=== PATIENT | male | born 1955 | race Caucasian/White ===

== ENCOUNTER 2024-05-14 13:04 | Emergency (ER) | payer MEDICARE, OTHER, SELFPAY ==
[2024-05-14 13:06] VITALS: BP 188/99
--- NOTE | 2024-05-14 14:01 | ED.GENMED ---
History of Present Illness
General
Chief Complaint: Back Pain
Time Seen by Provider: 05/14/24 13:50
History of Present Illness
History of Present Illness:
Patient presents to the emergency department with low back pain radiating down the right leg. Symptoms have been present for the past few days. Notes he has a history of degenerative disc disease and has had similar symptoms in the past. He
denies any bowel or bladder incontinence. Denies any saddle anesthesia though pain does radiate into his groin region. Denies any testicular swelling or penile pain. Denies any weakness in the lower extremities. Denies any fevers. Denies any
injuries.
Past History
Past History
ED Past Medical History: GERD, Renal failure (Chronic kidney disease stage III) and Other (Prostatitis)
ED Past Surgical History: Orthopedic (Right rotator cuff repair)
Social History
Tobacco: Smoker
Alcohol: Occasional
Personal:
Living: with family
Employment: Employed
Family History
Family History: Cancer
Phy Exam
Physical Exam
Physical Exam:
General: No acute distress
Head: NCAT
Neck, Normal in appearance, no swelling
Respiratory: No Respiratory distress
Abdomen: No distension
Ext: no edema,5/5 strength throughout hip flexors/KE/KF/DF/PF, SILT throughout
Neuro: MURILLO, AOx4, normal gait, able to toe walk
Back: no midline tenderness, SLR negative
Psych: Normal affect
Skin: Normal color
Course
Vital Signs
Initial and Last Documented VS:
Initial Vital Signs
Temp Pulse Resp BP Pulse Ox
97.5 F 74 18 188/99 98
05/14/24 13:06 05/14/24 13:06 05/14/24 13:06 05/14/24 13:06 05/14/24 13:06
Last Documented Vital Signs
Temp Pulse Resp BP Pulse Ox
97.5 F 74 18 188/99 98
05/14/24 13:06 05/14/24 13:06 05/14/24 13:06 05/14/24 13:06 05/14/24 13:06
ED Attending Note
ED Attending Note
ED Attending Note:
Lumbosacral radiculopathy without evidence of cord compression or cauda equina syndrome at this time. Will treat conservatively, refer to orthopedics. Strict return precautions given for worsening symptoms, saddle anesthesia, weakness in the legs,
bowel or bladder incontinence
-
Portions of this chart may have been created with voice recognition software.� Occasional wrong word or��sound alike� substitutions may have occurred due to the inherent limitations of voice recognition software.
Discharge Plan
Departure
Prescriptions:
No Action
omeprazole 20 MG capsule,delayed release(DR/EC)
20 mg PO DAILY
amlodipine 2.5 MG tablet
5 mg PO DAILY
Interventions
Interventions:
*Risk Screen - Suicide Last Done: 05/14/24 13:08
*General Assessment Last Done: 05/14/24 13:08
*Neglect/Abuse Screening Last Done: 05/14/24 13:08
ED-Musculoskeletal Assessment Last Done: 05/14/24 13:43
Discharge Date and Time
Print Language: KAZAKH
[2024-05-14 14:32] VITALS: BP 151/93
== END 2024-05-14 14:32 | disposition home or self-care (01) ==
LOC: EMR 13:04
PROVIDERS: EMERGENCY PHYSICIAN Emergency Medicine
DX: M54.17 Radiculopathy, lumbosacral region (principal); I10 Essential (primary) hypertension; K21.9 Gastro-esophageal reflux disease without esophagitis; N18.30 Chronic kidney disease, stage 3 unspecified; N41.9 Inflammatory disease of prostate, unspecified; F17.200 Nicotine dependence, unspecified, uncomplicated
CPT/HCPCS: 99282

== ENCOUNTER → 2024-07-08 16:41 | Outpatient (REF) | payer MEDICARE, OTHER, SELFPAY | LOC: PAVMRI 16:41 | PROVIDERS: ATTENDING PHYSICIAN Orthopaedic Surgery; FAMILY PHYSICIAN Family Medicine | DX: M54.50 Low back pain, unspecified (principal); M47.816 Spondylosis without myelopathy or radiculopathy, lumbar region | CPT/HCPCS: 72148 ==

== ENCOUNTER → 2024-09-02 10:03 | Outpatient (REF) | payer MEDICARE, OTHER, SELFPAY ==
[2024-09-02 11:58] LABS: ALT (SGPT) 18 U/L (0-50); AST (SGOT) 17 U/L (17-59); Albumin 4.3 g/dl (3.5-5.0); Alkaline Phosphatase 88 U/L (38-126); Blood Urea Nitrogen 33 mg/dl (9-20); Carbon Dioxide 23 mmol/L (22-30); Chloride 106 mmol/L (98-107); Glucose 104 mg/dl (70-99); HDL Cholesterol 49 mg/dl; LDL Cholesterol, Calculated 141 mg/dl; Potassium 4.7 mmol/L (3.5-5.1); Sodium 144 mmol/L (135-145); Total Bilirubin 0.7 mg/dl (0.2-1.3); Total Cholesterol 220 mg/dl (50-199); Total Protein 7.5 g/dl (6.3-8.2); Triglyceride 150 mg/dl (10-149); Very Low Density Lipoprotein 30 mg/dl (0-30); eGFR 37.71
[2024-09-03 12:06] LABS: Intact PTH 56.4 pg/ml (13.6-85.8)
[2024-09-04 05:34] LABS: PSA Total 2.4 ng/mL (0.0-4.0)
== END ==
LOC: REG 10:03
PROVIDERS: ATTENDING PHYSICIAN Specialist; FAMILY PHYSICIAN Family Medicine; OTHER PHYSICIAN Specialist
DX: R97.20 Elevated prostate specific antigen [PSA] (principal); N18.32 Chronic kidney disease, stage 3b; R31.0 Gross hematuria
CPT/HCPCS: 36415; 80053; 80061; 83970; 84153; 84154

== ENCOUNTER 2024-09-10 08:57 | Outpatient (RCR) | payer MEDICARE, OTHER, SELFPAY ==
[2024-09-10] MEDS: SODIUM BICARBONATE 1150 MEQ IV (09:32)
[2024-09-10 09:57] VITALS: BP 136/79
== END 2024-09-11 08:43 | disposition home or self-care (01) ==
LOC: OID 08:57
PROVIDERS: ATTENDING PHYSICIAN Specialist; FAMILY PHYSICIAN Family Medicine
DX: N18.32 Chronic kidney disease, stage 3b (principal); R31.29 Other microscopic hematuria; R80.9 Proteinuria, unspecified
CPT/HCPCS: 96365

== ENCOUNTER → 2024-09-10 09:24 | Outpatient (REF) | payer MEDICARE, OTHER, SELFPAY | LOC: RAD 09:24 | PROVIDERS: ATTENDING PHYSICIAN Specialist; FAMILY PHYSICIAN Family Medicine | DX: N39.0 Urinary tract infection, site not specified (principal); R31.0 Gross hematuria | CPT/HCPCS: 74178; Q9967 ==

== ENCOUNTER 2025-04-08 02:01 | Inpatient (IN) | payer MEDICARE, OTHER, SELFPAY ==
[2025-04-07 20:28] VITALS: BP 140/82
[2025-04-07 20:45] LABS: % Basophils 0.8 % (0-2); % Eosinophils 3.5 % (0-6); % Immature Granulocytes 0.6 % (0-0.5); % Lymphocytes 30.8 % (20.5-51.1); % Monocytes 10.1 % (1.7-9.3); % Neutrophils 54.2 % (42.2-75.2); Absolute Basophils 0.1 10^3/uL (0-0.2); Absolute Eosinophils 0.2 10^3/uL (0-0.7); Absolute Monocytes 0.7 10^3/uL (0.1-0.6); Absolute Neutrophils 3.6 10^3/uL (1.4-6.5); Hematocrit 36.2 % (39.0-52.0); Mean Corp Hgb Conc. 33.1 g/dL (33.0-37.0); Mean Corpuscular Hgb 27.7 pg (27.0-31.0); Mean Corpuscular Volume 83.6 fL (80.0-94.0); Nucleated Red Blood Cells % 0 % (-); Platelet Count 179 10^3/uL (130-400); Red Blood Cell Count 4.33 10^6/uL (4.70-6.10); Red Cell Dist. Width 14.3 % (11.5-14.5); White Blood Cell Count 6.6 10^3/uL (4.8-10.8)
[2025-04-07 20:59] LABS: ALT (SGPT) 16 U/L (0-50); AST (SGOT) 19 U/L (17-59); Albumin 4.3 g/dl (3.5-5.0); Alkaline Phosphatase 62 U/L (38-126); Blood Urea Nitrogen 45 mg/dl (9-20); Calcium 9.5 mg/dl (8.4-10.2); Carbon Dioxide 24 mmol/L (22-30); Chloride 111 mmol/L (98-107); Glucose 94 mg/dl (70-99); Potassium 5.2 mmol/L (3.5-5.1); Sodium 141 mmol/L (135-145); Total Bilirubin 0.8 mg/dl (0.2-1.3); Total Protein 7.3 g/dl (6.3-8.2); eGFR 35.46
[2025-04-07 21:12] VITALS: BP 124/83
[2025-04-07 21:14] VITALS: BMI 29.1
--- NOTE | 2025-04-07 21:25 | ED.GENMED ---
History of Present Illness
General
Chief Complaint: Rectal Bleeding
Source: patient
Exam Limitations: none
Time Seen by Provider: 04/07/25 21:16
History of Present Illness
History of Present Illness:
See MDM
Past History
Past History
ED Past Medical History: GERD, Renal failure (Chronic kidney disease stage III) and Other (Prostatitis)
ED Past Surgical History: Orthopedic (Right rotator cuff repair)
Social History
Tobacco: Smoker
Alcohol: Occasional
Personal:
Living: with family
Employment: Employed
Family History
Family History: Cancer
Phy Exam
Physical Exam
Physical Exam:
See MDM
Course
Orders/Labs/Results
Orders:
Orders
04/07/25 20:35
Complete Blood Count/With Diff Urgent
Comprehensive Metabolic Panel Urgent
04/07/25 20:37
Type+Screen Urgent
04/07/25 21:28
CT Abd/pel (oral only)-DH Only Urgent
Comment:
Reason For Exam: LLQ pain, rectal bleeding
Iohexol [Omnipaque] See Protocol PO NOW STA
04/07/25 23:03
ABO2 Routine
BBK Wristband Number:
Associate notified that ABO2 has been ordered: [id number]
Date: 04/07/25
Time: 20:46
Correctional Therapy Director ID: [id number]
04/08/25 00:37
Piperacillin/Tazo 3.375 Gram [Zosyn] 3.375 gram in 50 ml IV NOW
Abnormal Lab Results
04/07/25
20:35
RBC 4.33 L 10^6/uL
(4.70-6.10)
Hgb 12.0 L g/dL
(13.0-18.0)
Hct 36.2 L %
(39.0-52.0)
Absolute Monos (auto) 0.7 H 10^3/uL
(0.1-0.6)
Immature Gran % 0.6 H %
(0-0.5)
Monocytes % 10.1 H %
(1.7-9.3)
Potassium 5.2 H mmol/L
(3.5-5.1)
Chloride 111 H mmol/L
(98-107)
BUN 45 H mg/dl
(9-20)
Creatinine 2.0 H mg/dL
(0.7-1.3)
04/07/25 20:35
04/07/25 20:35
Vital Signs
Initial and Last Documented VS:
Initial Vital Signs
Temp Pulse Resp BP Pulse Ox
97.6 F 76 22 140/82 100
04/07/25 20:28 04/07/25 20:28 04/07/25 20:28 04/07/25 20:28 04/07/25 20:28
Last Documented Vital Signs
Temp Pulse Resp BP Pulse Ox
97.9 F 70 23 126/91 99
04/08/25 00:21 04/08/25 00:21 04/08/25 00:21 04/08/25 00:20 04/08/25 00:21
MDM/Problems Addressed
Differential Diagnosis Includes:
HPI and MDM Narrative:
69-year-old male presenting with rectal bleeding since yesterday. Given his prior history of hemorrhoids, he assumed this was hemorrhoid related. However, patient started to note bright red clot earlier today. He denies being on blood thinners.
He is now noticing left lower quadrant abdominal pain. He does have a history of diverticulosis
On exam, patient has very mild left lower quadrant tenderness. Rectal exam performed and there is bright red blood on the glove. No external bleeding hemorrhoid noted
Given the pain and bleeding, will obtain CT with concern for possible diverticulitis.
Physical exam
General: Well appearing and non-toxic
HEENT: protecting airway
Neck: appears supple
CV: No evidence of cyanosis
Resp: No accessory muscle use
Abd: Non-distended. Left lower quadrant tenderness without rebound
Rectal: Bright red blood on rectal exam
Extremities: No deformities
Neuro: alert
Psych: Normal affect
Skin: Intact
Problems Addressed including Acute and Chronic Conditions affecting care:
1. Abdominal pain and rectal bleeding
Acuity: acute
Prognosis: stable
Details: Potentially in the setting of diverticulosis versus of diverticulitis. Will obtain CT
Updates
CT confirms diverticulosis. Given the abdominal pain, patient started on Zosyn. Will admit. Patient has had several bouts of rectal bleeding since he has been here but vitals remained stable
Differential Diagnosis (but not limited to): Diverticulosis, diverticulitis, internal hemorrhoid
Testing considered: CT with IV contrast but patient has chronic kidney disease
Drug therapy (if applicable): OTC meds, please see d/c instruction regarding Rx drugs
Amount and/or Complexity of Data Reviewed
Clinical info obtained from: Patient
External data reviewed: N/A
Labs I independently reviewed (but not limited to): Hemoglobin 12, baseline chronic kidney disease
Radiology: The CT scan was personally and independently reviewed. In addition, official CT report reviewed.
Pulse Ox: not hypoxic
EKG independently reviewed: N/A
Maintenance Scheduler: N/A
Critical Care: N/A
Risk of Complication:
Social Determinants of health: Good social support
Discussed with other providers: Hospitalist
Escalation of Care includes Admit/Obs: Given the rectal bleeding abdominal pain, will admit
Occasional wrong word or 'sound a like' substitutions may have occurred due to the inherent limitations of voice recognition software. Read the chart carefully and recognize, using context, where substitutions have occurred.
*Critical Care Note
Total Time (30-74mins, 75-104mins- exclusive of procedures): Not Applicable
ED Attending Note
-
Portions of this chart may have been created with voice recognition software.� Occasional wrong word or��sound alike� substitutions may have occurred due to the inherent limitations of voice recognition software.
Discharge Plan
Departure
Patient Disposition: Admit
Date of Disposition: 04/08/25
Time of Disposition: 00:45
Admit to: Med/Surg
Presentation/result/management discussed w/ accepting MD/DO: Hospitalist
Discharge Problem:
Bright red rectal bleeding
Prescriptions:
No Action
omeprazole 20 MG capsule,delayed release(DR/EC)
20 mg PO DAILY
amlodipine 2.5 MG tablet
5 mg PO DAILY
cyclobenzaprine 10 mg tablet
5 mg PO TIDPRN PRN (Reason: muscle spasm) Qty: 9 0RF
Referrals:
Maximilian Carmona DO [Family Provider] -
Interventions
Interventions:
*Risk Screen - Suicide Last Done: 04/07/25 20:28
*General Assessment Last Done: 04/07/25 21:14
*Neglect/Abuse Screening Last Done: 04/07/25 20:28
*ED- Fall Risk Assessment Last Done: 04/07/25 21:14
*ED COVID-19 Vaccine History Last Done: 04/07/25 21:14
NI-Jwqsjm-Qeffxyjzpe Assessment Last Done: 04/07/25 21:14
ED- Cardiac Assessment Last Done: 04/07/25 21:14
ED- Pulmonary Assessment Last Done: 04/07/25 21:14
Discharge Date and Time
Print Language: NIUEAN
[2025-04-07] MEDS: OMNIPAQUE 50 ML PO (21:35)
[2025-04-07 22:00] VITALS: BP 128/86
[2025-04-07 23:00] VITALS: BP 137/96
[2025-04-08] VITALS (10 sets, daily range): BP systolic 107–150; BP diastolic 69–91; BMI 28.1
[2025-04-08] MEDS: ZOSYN 50 IV (01:04)
--- NOTE | 2025-04-08 01:26 | HPS.HSE ---
Family Physician
-
Family Physician: Maximilian Carmona
Chief Complaint
-
Rectal bleeding
History of Present Illness
This is a 69-year-old with past medical history of hypertension, GERD, CKD stage III, presenting to the emergency department with 1 evening of rectal bleeding.
Patient reports a prior history of bright red blood per rectum many years ago for which he was diagnosed with hemorrhoids. He has undergone EGD and colonoscopy many many years ago and was found to have a polyp. He also told me that made up any
constriction and he underwent a surgical procedure but is not clear. Perhaps hernia repair. Since then he has not had any issues with bright red blood per rectum.
He reported that last evening he started noticing clots in his bowel movement. He showed me pictures of stool mixed with dark blood. Later on he had more bright red blood mixed with clots. He had multiple episodes and decided come to the
emergency department.
Patient denies being on any thinners. He denies any NSAID use. He denies feeling lightheaded or dizzy. He denies any palpitations.
In the emergency department he was afebrile, blood pressure was 126/90 with a pulse of 70 satting 90% on room air.
He is moving his jaw which is similar to prior with normal platelet count. Electrolytes were normal. BUN/creatinine were similar to prior at 41 and 2.0 respectively.
He had a CT of the abdomen pelvis without IV or oral contrast without any acute findings, there was diverticulosis with no signs of diverticulitis.
Medical History
Past Medical History
Past Medical History: Reports Other
Additional Past Medical History:
CKD stage III
Prostatitis
GERD
Hypertension
Past Surgical History: Reports Other
Additional Past Surgical History:
Lap repair of inguinal hernia 2020
Right knee arthroscopy
TURP 2022
Surgical History
Surgical History
Social History
Tobacco: Non-smoker
Alcohol: None
Drug: None
Family History
Family History: Not pertinent
Allergies / Home Medications
Allergies reflects when Allergies were last updated in [facility].
Home Medications with original date entered in [facility]
Allergy/Medication List:
Allergies
Allergy/AdvReac Type Severity Reaction Status Date / Time
No Known Allergies Allergy Verified 04/07/25 20:31
Home Medications
amlodipine 2.5 mg tablet 5 mg PO DAILY 08/05/21
omeprazole 20 mg capsule,delayed release 20 mg PO DAILY 08/05/21
Review of Systems
-
Constitutional: Reports No Symptoms
EENT: Reports No Symptoms
Respiratory: Reports No Symptoms
Cardiac: Reports No Symptoms
Abdomen/GI: Reports Bloody Stools
: Reports No Symptoms
Musculoskeletal: Reports No Symptoms
Skin: Reports No Symptoms
Neurological: Reports No Symptoms
Endocrine: Reports No Symptoms
Hematologic/Lymphatic: Reports No Symptoms
Psych: Reports No Symptoms
Physical Exam
Vital Signs
Vital Signs
Temp Pulse Resp BP Pulse Ox
97.9 F 70 23 126/91 99
04/08/25 00:21 04/08/25 00:21 04/08/25 00:21 04/08/25 00:20 04/08/25 00:21
Physical Exam
General: Well Developed, Well Nourished and No Apparent Distress
HEENT: NormoCephalic, Moist mucous membranes and Atraumatic
Respiratory: Clear
Cardiac: S1/S2 and Regular Rhythm; No Murmur or Rub
GI: Soft, Non Tender, Non Distended and Normal Bowel Sounds; No Organomegaly
Rectal: Red and Deferred by Provider
Genito-urinary: Deferred by me
Musculoskeletal: No Clubbing, No Cyanosis and No Edema
Skin: No Rash
Neuro: Nonfocal/grossly intact
Hematologic/Lymphatic: No Lymphadenopathy
Psych: Calm
Laboratory Results
-
04/07/25 20:35
04/07/25 20:35
Laboratory Results
Total Bilirubin 0.8 mg/dl (0.2-1.3) 04/07/25 20:35
AST 19 U/L (17-59) 04/07/25 20:35
ALT 16 U/L (0-50) 04/07/25 20:35
Alkaline Phosphatase 62 U/L (38-126) 04/07/25 20:35
Data Reviewed
-
CT Scan: Report Reviewed by me
Lab Data: Labs Reviewed by me
Old Records: Reviewed
Impression/Plan
-
IMPRESSION:
69-year-old presenting to the emergency department with bright red blood per rectum and multiple bloody bowel movements with clots. Minimal abdominal discomfort and denies any nausea vomiting or diarrhea. He is afebrile with normal white cells.
Hemoglobin is stable. Hemodynamically stable. Electrolytes BUN/creatinine are stable and unremarkable. He has red blood per rectum in the ED but has not had any bowel movement that was bloody while in the ED.
PLAN:
GI bleed�lower GI bleed, suspect diverticular bleed given findings of diverticulosis and presence of clots from stool mixed with blood. He has no significant abdominal pain I do not think that there is an active diverticulitis or infectious
colitis. Cannot rule out ischemic colitis.
� Hemodynamically stable, admitted to telemetry for now
-Consented, type and screen
-Clear liquid diet for now
-Trend H&H every 8 hours
-Holding antihypertensive amlodipine
-Maintenance fluids with LR
-Continue Protonix IV daily
-GI consultation
DVT prophylaxis�SCDs
CODE STATUS�full code
[2025-04-08] MEDS: D5LR 1000 IV ×2 (03:22→16:13)
--- NOTE | 2025-04-08 03:46 | PTCARENOTE ---
Patient admitted to , telemetry order> NSR on the monitor-strip placed in chart. Afebrile, HR 63, RR 20, BP 150/80, pox 99% room air. No c/o pain. AAOx3. Steady on feet. Skin intact. IVFs started/infusing through #18 RAC/IV per MD order. H&H q8H
ordered. PMH and medications reviewed by this RN and patient. call mccarthy within reach.
[2025-04-08 06:20] LABS: Hematocrit 32.6 % (39.0-52.0); Hemoglobin 10.4 g/dL (13.0-18.0)
[2025-04-08 06:29] LABS: INR 1.15
[2025-04-08] MEDS: NSS (PRESERVATIVE FREE) 10 ML IV (07:27)
[2025-04-08] MEDS: PROTONIX IV 40 MG IV (07:27)
--- NOTE | 2025-04-08 09:09 | W.PN.HOSP.TC ---
Today's Communication/Plan
-
Trend CBC
Hold AC and antiplatelet
Avoid NSAID
N.p.o. at midnight for colonoscopy
Assessment / Plan
Assessment / Plan
#LGIB
#Diverticulosis
#Acute blood loss anemia
-Suspected diverticular bleed, bright red blood in toilet bowl with clots, CT showing diverticulosis
-Does have cardiac murmur, cannot rule out other etiology such as Heyde's syndrome or ulcerative disease
-Hemoglobin on arrival was near 12.0 (13 in November), has trended down to 10.4�9.9 today
-Not currently on any anticoagulants; home amlodipine held upon arrival due to soft BP
-GI following, recommending CLD with n.p.o. at midnight for colonoscopy tomorrow
-Trend CBC, transfuse for hemoglobin <7 or symptoms of anemia
-Avoid NSAIDs and antiplatelets/AC
-Continue home PPI daily
#SAMIA on CKD stage III
-Likely prerenal SAMIA due to bleeding; creatinine 2.0 on arrival with baseline near 1.4
-Unclear cause of CKD though may be related to hypertension; no systemic complication
-Started on light IV fluids upon arrival, suspect renal function will improve
-Continue to trend BMP and avoid nephrotoxic agents
#Primary hypertension
-Home regimen includes amlodipine
-Previous echocardiogram with signs of mild concentric LVH
-Blood pressure here soft, amlodipine held on arrival
-Plan to resume amlodipine when BP improves
#GERD
-Home medications include omeprazole daily
-No known history of BE or erosive disease
-Here with GI bleeding though suspect source is lower
Diet: CLD, n.p.o. after midnight (GI ordered bowel prep)
DVT prophylaxis: SCDs
CODE STATUS: Full code
Anticipated Discharge: 24 - 48 hours
Subjective/Interval History
-
Date of Service: April 08, 2025
Seen and examined at the bedside. No acute events reported overnight. AFVSS this morning
Hemoglobin downtrending to 9.9 on most recent labs. Creatinine up to 2.0 from baseline 1.4
Patient denies any recurrence of his bleeding. Denies any symptoms at time of my assessment and states he feels okay
Objective Data
-
Labs:
Laboratory Results
04/08/25 04/08/25
12:00
Hgb 10.4 L Pending
Hct 32.6 L Pending
PT 15.0 H
INR 1.15
Vital Signs:
Vital Signs
Temp Pulse Resp BP Pulse Ox
97.8 F 67 16 110/71 99
04/08/25 07:33 04/08/25 07:33 04/08/25 07:33 04/08/25 07:33 04/08/25 08:56
I&O
04/07/25 04/08/25 04/09/25
06:59 06:59 06:59
Intake Total 262.5 / 262.5
Balance 262.5 / 262.5
Review of Systems
-
History Source: Patient
All other systems: Reviewed and negative
Physical Exam
-
General: Well Developed, Well Nourished, No Apparent Distress and Comfortable
HEENT: Normocephalic, Atraumatic, Moist Mucous Membranes and Anicteric
Respiratory: Clear to Auscultation and Non Labored Respirations; Negative Accessory Resp Muscle Use
Cardiac: Regular Rhythm, S1/S2 and Murmur (Apical blowing murmur, /6); Negative Rub, JVD or Gallop
GI: Soft, Nontender, Nondistended and Normal Bowel Sounds
Musculoskeletal: No Clubbing, No Cyanosis and No Edema
Skin: Warm, Dry and Normal Turgor; Negative Rash or Jaundice
Neuro: AO x 3, Nonfocal/Grossly Intact and Central Nerve's Intact; Negative Tremors
Psych: Calm
Data Reviewed
-
Labs: Labs Reviewed by me, Discussed with Physician (Gastroenterology) and Discussed with Patient
--- NOTE | 2025-04-08 09:37 | CON.GI ---
Addendum entered and electronically signed by Yesi Duque Do, MD 04/08/25 16:05:
I saw and examined the patient.
The FLOOR COVERING CONTRACTOR's note was reviewed and I agree with the note.
Comment:
Barry is a 69yo M with h/o colonic polyps and diverticulosis who presents with hematochezia that is painless new onset.� Denies AC or chronic nsaid use.� Vitals stable.� Exam obese NTTP, NABS. WWP without edema.� Labs reviewed. H/H drop noted.�
His last Cscope was [address] Coreas also reviewed
Impression:
-��������� Painless hematochezia
o�� Differential includes diverticulitis, hemorrhoids or ulcer
-��������� Anemia
-��������� Obesity
-��������� H/o colonic polyps
Recommendations
-��������� Start golyte prep now
-��������� CLD NPO at OK for colonoscopy tomorrow
-��������� Serial H/H
-��������� Large bore IV
Will follow with you.
Original Note:
Consultation
-
Date/Time Consultation Requested: 04/08/25 0240
Date/Time Consultation Performed: 04/08/25 0940
Requesting Provider: NKECHI Mai
Performing Provider: NKECHI Alvares, Yesi Ladd MD
Reason for Consultation: rectal bleeding
Medical History
Chief Complaint / HPI
Chief Complaint: bright red blood per rectum
History of Present Illness:
Pt is a 69yo with hx GERD, HTN, CKD, colon polyps with removal of 16 mm TV polyp in 2019, prostatitis , prior TURP, knee/shoulder surgery with onset of rectal bleeding. CT with oral contrast only on admission with Limited evaluation without
intravenous contrast and without oral contrast opacification of entire large bowel.Descending colon and sigmoid diverticulosis.Small left renal cyst and additional subcentimeter low-attenuation left renal lesion most likely a cyst.Small urinary
bladder diverticulum. hbg 12 with drop to 10.4 after admission. hx EGD 2017 acute gastritis, normal duodenum, irreg Z line with neg bx, and last colonoscopy 2019 HP sigmoid polyp, tattoo in sigmoid, diverticulosis, melanosis.
In review with patient he admits to occasional rectal bleeding with hemorrhoids. He then started with larger volume of dark red blood with clots then red blood since Sunday. He admits to less blood since onset. He also had very mild LLQ
tenderness. He has chronic GERD stable on PPI daily. He otherwise denies dysphagia,nausea, vomiting, diarrhea, constipation, or black stools. Denies Anticoagulation or NSAID use.
Past Medical History
Past Medical History: GERD, HTN, Renal Failure (CKD) and Other (prostatitis, colon polyps)
Past Surgical History: Orthopedic (knee arthroscopy, rotator cuff repair ), Urological (TURP , circumcision ) and Other (hernia repair , )
Social History
Tobacco: Former Smoker
Alcohol: Occasional (1-2 drinks occasionally )
Drug: None
Personal:
Living: With Family
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
Family History
Family History: Other (no family hx colon Ca)
Allergies / Home Medications
Allergy/AdvReac Type Severity Reaction Status Date / Time
No Known Allergies Allergy Verified 04/07/25 20:31
�Medication �Instructions �Recorded
amlodipine 2.5 mg tablet 5 mg PO DAILY 08/05/21
omeprazole 20 mg capsule,delayed 20 mg PO DAILY 08/05/21
release
cyclobenzaprine 10 mg tablet 5 mg (1/2 x 10 mg) PO TIDPRN PRN 05/14/24
muscle spasm #9 tabs
Review of Systems
-
History Source: Patient
Constitutional: Reports No Symptoms
EENT: Reports No Symptoms
Respiratory: Reports No Symptoms
Cardiac: Reports No Symptoms
Abdomen/GI: Reports Abdominal Pain (mild LLQ ) and Bloody Stools
: Reports No Symptoms
Musculoskeletal: Reports No Symptoms
Skin: Reports No Symptoms
Neurological: Reports No Symptoms
Endocrine: Reports No Symptoms
Hematologic/Lymphatic: Reports Bleeding
Vital Signs
Temp Pulse Resp BP Pulse Ox
97.8 F 67 16 110/71 99
04/08/25 07:33 04/08/25 07:33 04/08/25 07:33 04/08/25 07:33 04/08/25 08:56
Physical Exam
Exam
General: Well Developed, Well Nourished and No Apparent Distress
HEENT: Normocephalic
Respiratory: Clear
Cardiac: Regular Rhythm
GI: Soft, Non Distended and Tender (minimal LLQ tenderness )
Rectal: Other (red blood on ER rectal )
Musculoskeletal: No Clubbing and No Cyanosis
Skin: Warm and Dry
Neuro: Awake, Alert and AO x 3
Psych: Calm
Results
WBC 6.6 10^3/uL (4.8-10.8) 04/07/25 20:35
Hgb 10.4 g/dL (13.0-18.0) L 04/08/25 05:25
Hct 32.6 % (39.0-52.0) L 04/08/25 05:25
MCV 83.6 fL (80.0-94.0) 04/07/25 20:35
Plt Count 179 10^3/uL (130-400) 04/07/25 20:35
Absolute Neuts (auto) 3.6 10^3/uL (1.4-6.5) 04/07/25 20:35
PT 15.0 Sec (11.4-14.6) H 04/08/25 05:25
INR 1.15 04/08/25 05:25
Sodium 141 mmol/L (135-145) 04/07/25 20:35
Potassium 5.2 mmol/L (3.5-5.1) H 04/07/25 20:35
Chloride 111 mmol/L (98-107) H 04/07/25 20:35
Carbon Dioxide 24 mmol/L (22-30) 04/07/25 20:35
BUN 45 mg/dl (9-20) H 04/07/25 20:35
Creatinine 2.0 mg/dL (0.7-1.3) H 04/07/25 20:35
Calcium 9.5 mg/dl (8.4-10.2) 04/07/25 20:35
Total Bilirubin 0.8 mg/dl (0.2-1.3) 04/07/25 20:35
AST 19 U/L (17-59) 04/07/25 20:35
ALT 16 U/L (0-50) 04/07/25 20:35
Alkaline Phosphatase 62 U/L (38-126) 04/07/25 20:35
Diagnostic Image Results:
04/07/25 CT with oral contrast only on admission with Limited evaluation without intravenous contrast and without oral contrast opacification of entire large bowel.
Descending colon and sigmoid diverticulosis.Small left renal cyst and additional subcentimeter low-attenuation left renal lesion most likely a cyst.Small urinary bladder diverticulum.
Prior GI Procedures:
08/2020- colonoscopy [facility] good prep to IC valve - One 3 mm polyp in the sigmoid colon, removed with a
cold biopsy forceps. Resected and retrieved.
- A tattoo was seen in the sigmoid colon. The tattoo
site appeared normal.
- Diverticulosis in the sigmoid colon, in the
descending colon and in the transverse colon.
- Melanosis in the colon.
- The examination was otherwise normal.
bx HP polyps
04/2017 EGD [facility]- - Z-line irregular, 38 cm from the incisors. Biopsied.
- Acute gastritis. Biopsied.
- Normal third portion of the duodenum. Biopsied.
bx chronic esophagitis, neg metaplasia neg dysphagia, neg h pylori
Assessment / Plan
-
Pt is a 69yo with hx GERD, HTN, CKD, colon polyps with removal of 16 mm TV polyp in 2018, prostatitis , prior TURP, knee/shoulder surgery with onset of rectal bleeding. CT with oral contrast only on admission with Limited evaluation without
intravenous contrast and without oral contrast opacification of entire large bowel.Descending colon and sigmoid diverticulosis.Small left renal cyst and additional subcentimeter low-attenuation left renal lesion most likely a cyst.Small urinary
bladder diverticulum. hbg 12 with drop to 10.4 after admission. hx EGD 2016 acute gastritis, normal duodenum, irreg Z line with neg bx, and last colonoscopy 2019 HP sigmoid polyp, tattoo in sigmoid, diverticulosis, melanosis. Denies
Anticoagulation or NSAID use.
-rectal bleeding
-hx colon polyp with removal of 16 mm TV polyp in 2018
-GERD stable on PPI
-hyperkalemia
-diverticulosis
other med problems:
-HTN
-CKD
-renal cyst
-prostatitis
-prior TURP
-knee/shoulder surgery
PLAN:
etiology of rectal bleeding with concern for diverticular bleeding vs colitis with mild abdominal pain though not noted on CT vs other
pt reports less bleeding over time
cont to monitor for recurrent bleeding
trend hbg
CT with oral contrast as noted, CTA held with CKD
if continued bleeding consider colonoscopy -- if colonoscopy held and bleeding stops t/c OP follow up for repeat colonoscopy as was due 08/2025 for follow up with hx polyps
cont clear diet
-
-
Thank you for consultation and allowing me to participate in the patient's care. Please call the certified pediatric nurse practitioner GI physician during the after hours with any questions or concerns.
--- NOTE | 2025-04-08 09:52 | CM ---
CM following re: discharge planning.
Reviewed pt's chart, met with pt.
Pt is a 69 year old male, admitted with primary dx of Rectal bleeding. PMH includes: hypertension, GERD, CKD stage III.
Pt reports he lives with spouse 2SH, no steps to enter, has 2 supportive children. 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 No DME, VN or SNF history. Pt expressed his desire to return back home at discharge.
PCP: Maximilian Carmona
Pharmacy: [facility]
D/C plan: home with anticipated no needs. Spouse to transport at discharge.
CM will follow with discharge plan updates as hospitalization progresses
[2025-04-08] MEDS: DULCOLAX 10 MG PO (16:43)
[2025-04-08] MEDS: NULYTELY SOLUTION 4 LITERS PO (16:44)
[2025-04-08 16:46] LABS: Hematocrit 30.3 % (39.0-52.0); Hemoglobin 9.9 g/dL (13.0-18.0)
--- NOTE | 2025-04-08 17:43 | PTCARENOTE ---
Pt continues w/ rectal bleeding. Do at bedside to discuss POC. Plan to start Golyte preop today, continue w/ clears, NPO at midnight, colonoscopy tomorrow.
--- NOTE | 2025-04-08 17:45 | DOWNTIME ---
There was a [employer] Client Pharmaceutical Representative Downtime on 04/08/2025 from 1230 to 04/08/2025 at 1550. Downtime documentation of patient's care, including medication administrations, has been reconciled in the electronic record per guidelines. Refer to the
patient's paper chart under the miscellaneous tab to see printed paper medication records and downtime forms.
--- NOTE | 2025-04-08 20:00 | PTCARENOTE ---
Resumed care of pt AAOx3 sitting up in bed. Pt currently drinking Golyte bowel prep for colonoscopy in am. Pt ambulating to bathroom independently when needed. Pt reports continued bright red rectal bleeding. Pt denies any complaints of pain or
discomfort at this time. Vital signs stable. IVF infusing as ordered. Call mccarthy in reach. Will continue to monitor.
[2025-04-09] VITALS (8 sets, daily range): BP systolic 104–121; BP diastolic 62–75
[2025-04-09] MEDS: D5LR 1000 IV (06:06)
[2025-04-09 07:30] LABS: Hematocrit 28.5 % (39.0-52.0); Hemoglobin 9.4 g/dL (13.0-18.0); Mean Corpuscular Hgb 27.9 pg (27.0-31.0); Mean Corpuscular Volume 84.6 fL (80.0-94.0); Mean Platelet Volume 10.7 fL (7.4-10.4); Platelet Count 154 10^3/uL (130-400); Red Blood Cell Count 3.37 10^6/uL (4.70-6.10); Red Cell Dist. Width 14.1 % (11.5-14.5); White Blood Cell Count 4.9 10^3/uL (4.8-10.8)
--- NOTE | 2025-04-09 08:04 | W.PN.HOSP.TC ---
Today's Communication/Plan
-
Low residue diet
Trend CBC and monitor for bleeding
Plan OP follow-up with GI for polypectomy
Likely DC on 04/10
Assessment / Plan
Assessment / Plan
#Diverticular bleed
#Acute blood loss anemia
#Colon polyp
-Suspected diverticular bleed, bright red blood in toilet bowl with clots, CT showing diverticulosis
-Does have cardiac murmur, cannot rule out other etiology such as Heyde's syndrome or ulcerative disease
-Hemoglobin on arrival was near 12.0 (13 in November), has trended down to 10.4�9.9 today
-Not currently on any anticoagulants; home amlodipine held upon arrival due to soft BP
-GI following, colonoscopy with polyps and nonbleeding diverticuli (signs of recent bleed)
-Trend CBC, transfuse for hemoglobin <7 or symptoms of anemia
-Avoid NSAIDs and antiplatelets/AC
-Continue home PPI daily
-Plan for OP scope for polypectomy
#SAMIA on CKD stage III
-Likely prerenal SAMIA due to bleeding; creatinine 2.0 on arrival with baseline near 1.4
-Unclear cause of CKD though may be related to hypertension; no systemic complication
-Started on light IV fluids upon arrival, suspect renal function will improve
-Continue to trend BMP and avoid nephrotoxic agents
#Primary hypertension
-Home regimen includes amlodipine
-Previous echocardiogram with signs of mild concentric LVH
-Blood pressure here soft, amlodipine held on arrival
-Plan to resume amlodipine when BP improves
#GERD
-Home medications include omeprazole daily
-No known history of BE or erosive disease
-Here with GI bleeding though suspect source is lower
Diet: LRD
DVT prophylaxis: SCDs
CODE STATUS: Full code
Anticipated Discharge: Within 24 hours
Subjective/Interval History
-
Date of Service: April 09, 2025
Seen and examined at bedside. No acute events reported overnight. AFVSS this morning
Hemoglobin stable. Denies any further bleeding. Underwent colonoscopy that showed diverticulosis without active bleeding as well as colon polyps
Denies any new complaints as of this morning
Objective Data
-
Labs:
Laboratory Results
04/09/25
06:33
WBC 4.9
Hgb 9.4 L
Hct 28.5 L
Plt Count 154
Sodium Pending
Potassium Pending
Chloride Pending
Carbon Dioxide Pending
BUN Pending
Creatinine Pending
Glucose Pending
Calcium Pending
Vital Signs:
Vital Signs
Temp Pulse Resp BP Pulse Ox
97.4 F 79 16 111/74 95
04/09/25 03:00 04/09/25 03:00 04/09/25 03:00 04/09/25 03:00 04/09/25 03:00
I&O
04/08/25 04/09/25 04/10/25
06:59 06:59 06:59
Intake Total 262.5 / 262.5 2820 / 2820
Balance 262.5 / 262.5 2820 / 2820
Review of Systems
-
History Source: Patient
All other systems: Reviewed and negative
Physical Exam
-
General: Well Developed, Well Nourished, No Apparent Distress and Comfortable
HEENT: Normocephalic, Atraumatic, Moist Mucous Membranes and Anicteric
Respiratory: Clear to Auscultation and Non Labored Respirations; Negative Accessory Resp Muscle Use
Cardiac: Regular Rhythm, S1/S2 and Murmur; Negative Rub or Gallop
GI: Soft, Nontender, Nondistended and Normal Bowel Sounds
Musculoskeletal: No Clubbing, No Cyanosis and No Edema
Skin: Warm and Dry; Negative Rash or Jaundice
Neuro: AO x 3 and Nonfocal/Grossly Intact
Psych: Calm
Data Reviewed
-
Labs: Labs Reviewed by me, Discussed with Physician (GI attending) and Discussed with Patient
[2025-04-09 08:05] LABS: Blood Urea Nitrogen 23 mg/dl (9-20); Calcium 8.9 mg/dl (8.4-10.2); Carbon Dioxide 25 mmol/L (22-30); Chloride 112 mmol/L (98-107); Estimated Creatinine Clearance 44 ml/min; Glucose 108 mg/dl (70-99); Sodium 139 mmol/L (135-145)
[2025-04-09] MEDS: PROTONIX IV 40 MG IV (08:20)
[2025-04-09] MEDS: NSS (PRESERVATIVE FREE) 10 ML IV (08:20)
--- NOTE | 2025-04-09 10:30 | PTCARENOTE ---
Received patient from PACU, s/p colonoscopy. Patient AAOx3, no c/o pain, ambulated from stretcher to bed with a steady gait. Patient is ordering breakfast now-Low residue diet. Patient tolerating PO liquids.
--- NOTE | 2025-04-09 13:15 | PTCARENOTE ---
Patient tolerated low residue diet. Patient has no c/o nausea or badominal discomfort.
--- NOTE | 2025-04-09 14:16 | CM ---
CM following re: discharge planning.
Reviewed pt's chart, met with pt.
Pt lives with spouse 2SH, no steps to enter, has 2 supportive children and pt described himself as independent in all areas [employer]. No DME, VN or SNF history.
D/C plan: home with anticipated no needs. Spouse to transport at discharge.
CM will follow with discharge plan updates as hospitalization progress
[2025-04-10 03:06] VITALS: BP 112/66
[2025-04-10 07:00] VITALS: BP 124/75
--- NOTE | 2025-04-10 09:18 | W.PN.HOSP.TC ---
Today's Communication/Plan
-
Discharge
CBC in 5 days
OP follow-up with GI for colonoscopy and polypectomy
Assessment / Plan
Assessment / Plan
#Diverticular bleed
#Acute blood loss anemia
#Colon polyps
-Suspected diverticular bleed, bright red blood in toilet bowl with clots, CT showing diverticulosis
-Does have cardiac murmur, cannot rule out other etiology such as Heyde's syndrome or ulcerative disease
-Hemoglobin on arrival was near 12.0 (13 in November), has trended down to 10.4�9.9 today
-Not currently on any anticoagulants; home amlodipine held upon arrival due to soft BP
-GI following, colonoscopy with polyps and nonbleeding diverticuli (signs of recent bleed)
-Trend CBC, transfuse for hemoglobin <7 or symptoms of anemia
-Avoid NSAIDs and antiplatelets/AC
-Continue home PPI daily
-Plan for OP scope for polypectomy
#SAMIA on CKD stage III
-Likely prerenal SAMIA due to bleeding; creatinine 2.0 on arrival with baseline near 1.4
-Unclear cause of CKD though may be related to hypertension; no systemic complication
-Started on light IV fluids upon arrival, suspect renal function will improve
-Continue to trend BMP and avoid nephrotoxic agents
#Primary hypertension
-Home regimen includes amlodipine
-Previous echocardiogram with signs of mild concentric LVH
-Blood pressure here soft, amlodipine held on arrival
-Plan to resume amlodipine when BP improves
#GERD
-Home medications include omeprazole daily
-No known history of BE or erosive disease
-Here with GI bleeding though suspect source is lower
Diet: LRD
DVT prophylaxis: SCDs
CODE STATUS: Full code
Anticipated Discharge: Today
Subjective/Interval History
-
Date of Service: April 10, 2025
Seen and examined at the bedside. No acute events reported overnight. AFVSS this morning
Hemoglobin with mild downtrend compared to yesterday. Denies any recurrence of bleeding. Denies any other symptoms
States he feels well and is ready for discharge home
Objective Data
-
Labs:
Laboratory Results
04/10/25
09:15
WBC Pending
Hgb Pending
Hct Pending
Plt Count Pending
Vital Signs:
Vital Signs
Temp Pulse Resp BP Pulse Ox
98.1 F 66 16 124/75 96
04/10/25 07:00 04/10/25 07:00 04/10/25 07:00 04/10/25 07:00 04/10/25 07:00
I&O
04/09/25 04/10/25 04/11/25
06:59 06:59 06:59
Intake Total 2820 / 2820 900 / 900
Balance 2820 / 2820 900 / 900
Review of Systems
-
History Source: Patient
All other systems: Reviewed and negative
Physical Exam
-
General: Well Developed, Well Nourished, No Apparent Distress and Comfortable
HEENT: Normocephalic, Atraumatic, Moist Mucous Membranes and Anicteric
Respiratory: Clear to Auscultation and Non Labored Respirations; Negative Accessory Resp Muscle Use
Cardiac: Regular Rhythm, S1/S2 and Murmur; Negative Rub or Gallop
GI: Soft, Nontender, Nondistended and Normal Bowel Sounds
Musculoskeletal: No Clubbing, No Cyanosis and No Edema
Skin: Warm and Dry; Negative Rash or Jaundice
Neuro: AO x 3, Nonfocal/Grossly Intact and Central Nerve's Intact
Psych: Calm
Data Reviewed
-
Labs: Labs Reviewed by me and Discussed with Patient
[2025-04-10] MEDS: PROTONIX IV 40 MG IV (09:42)
[2025-04-10] MEDS: NSS (PRESERVATIVE FREE) 10 ML IV (09:43)
[2025-04-10 09:55] LABS: Hematocrit 26.5 % (39.0-52.0); Hemoglobin 8.8 g/dL (13.0-18.0); Mean Corp Hgb Conc. 33.2 g/dL (33.0-37.0); Mean Corpuscular Hgb 27.8 pg (27.0-31.0); Mean Corpuscular Volume 83.6 fL (80.0-94.0); Mean Platelet Volume 10.1 fL (7.4-10.4); Platelet Count 125 10^3/uL (130-400); Red Blood Cell Count 3.17 10^6/uL (4.70-6.10); White Blood Cell Count 4.3 10^3/uL (4.8-10.8)
--- NOTE | 2025-04-10 10:16 | W.PN.GI.CBS2 ---
Today's Communication / Plan
-
OK for DC from GI
OP colo in 6 months for polypectomy with
Assessment / Plan
-
Pt is a 69yo with hx GERD, HTN, CKD, colon polyps with removal of 16 mm TV polyp in 2019, prostatitis , prior TURP, knee/shoulder surgery with onset of rectal bleeding. CT with oral contrast only on admission with Limited evaluation without
intravenous contrast and without oral contrast opacification of entire large bowel.Descending colon and sigmoid diverticulosis.Small left renal cyst and additional subcentimeter low-attenuation left renal lesion most likely a cyst.Small urinary
bladder diverticulum. hbg 12 with drop to 10.4 after admission. hx EGD 2016 acute gastritis, normal duodenum, irreg Z line with neg bx, and last colonoscopy 2019 HP sigmoid polyp, tattoo in sigmoid, diverticulosis, melanosis. Denies
Anticoagulation or NSAID use.
-rectal bleeding
-hx colon polyp with removal of 16 mm TV polyp in 2018
-GERD stable on PPI
-hyperkalemia
-diverticulosis
other med problems:
-HTN
-CKD
-renal cyst
-prostatitis
-prior TURP
-knee/shoulder surgery
PLAN:
Status post colonoscopy 04/[address] Ladd and was noted to have old blood and most likely source of bleeding was thought to be related to diverticular bleed. No further bleeding and tolerating diet okay for DC today with repeat outpatient
colonoscopy with Dr. Ladd in 6 months for polypectomy.
Will sign off and will be available as needed
Subjective
Subjective
Date of Service: April 10, 2025
Patient feels well no further bleeding and hemoglobin remained stable. He was able to tolerate diet last night
Objective
Data Reviewed
Laboratory Data:
Laboratory Results
04/10/25 09:42
04/09/25 06:33
Laboratory Results
PT 15.0 Sec (11.4-14.6) H 04/08/25 05:25
INR 1.15 04/08/25 05:25
Total Bilirubin 0.8 mg/dl (0.2-1.3) 04/07/25 20:35
AST 19 U/L (17-59) 04/07/25 20:35
ALT 16 U/L (0-50) 04/07/25 20:35
Alkaline Phosphatase 62 U/L (38-126) 04/07/25 20:35
Vital Signs and I&O:
Vital Signs
Temp Pulse Resp BP Pulse Ox
98.1 F 66 16 124/75 96
04/10/25 07:00 04/10/25 07:00 04/10/25 07:00 04/10/25 07:00 04/10/25 07:00
I&O
04/09/25 04/10/25 04/11/25
06:59 06:59 06:59
Intake Total 2820 / 2820 900 / 900
Balance 2820 / 2820 900 / 900
Physical Exam
Physical Exam
Cardiology: Normal Sinus Rhythm
Pulmonary: Clear
GI: Soft, Non Distended, Non Tender and Normal Bowel Sounds
[2025-04-10 11:00] VITALS: BP 134/76
--- NOTE | 2025-04-10 11:31 | CM ---
CM following re: discharge planning.
Reviewed pt's chart, met with pt.
Discharge order noted. Pt is aware, expressed his agreement with discharge and pt stated he will drive home, his car is parked on the parking lot.
IMM reviewed, placed on chart, pt has a copy.
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
No after care VN services indicated
D/C plan: home no needs. Pt will drive home or son to transport.
--- NOTE | 2025-04-10 13:52 | W.DCSUMMARY ---
Discharge Summary
Discharge Data
Date of Admission: 04/08/25
Date of Discharge: 04/10/25
Total time spent discharging patient (in min): 31
-
Pending Results: No
Hospital Course
Discharging Physician :�Bart Beltran DO
Disposition :���� Home
Principal Discharge diagnosis :�
Diverticular bleed
Acute blood loss anemia
Colon polyps
Cardiac murmur (presumed )
Chronic Discharge diagnosis :�
CKD stage III
Hypertension with LVH
GERD
Hospital Course :�
69-year-old male that presented to the hospital with rectal bleeding, noticing toilet bowl feeling with red blood and presence of blood clots. Upon arrival to the ED found to have downtrending hemoglobin with initial value 12 (down from 13.5 on
last labs in system) that decreased down to 8.8 by day of discharge. CT A/P on arrival showed descending colon and sigmoid diverticulosis but no other findings such as mass or other anatomical abnormality. Was placed on the PPI therapy and given
clear liquids pending GI evaluation. Gastroenterology provided bowel prep and performed colonoscopy on 04/09/2025. Colonoscopy ultimately demonstrated nonbleeding diverticuli with evidence of recent bleeding (heme present), and also demonstrated
colon polyps. Due to ongoing bleeding, gastroenterology decided to defer polypectomy to the outpatient setting as further sources of bleeding could complicate his clinical picture. He was monitored overnight after colonoscopy and had no recurrence
of rectal bleeding. Tolerated low residue diet prior to discharge. With stable on 04/10/2025 for discharge with outpatient follow-up. Provided prescription for CBC 5 days after his discharge to reassess blood counts. Will need to follow-up with
gastroenterology in office for colonoscopy in 6 months with plan to perform polypectomy at that time. Of note, he does have a systolic ejection murmur best heard at the [facility] suspicious for aortic stenosis. Should have an echocardiogram performed
as outpatient to assess hemodynamics.
Consultants :
Gastroenterology: Yesi Ladd DO
Important imaging findings :�
CT A/P without contrast (04/07/2025)
IMPRESSION:Limited evaluation without intravenous contrast and without oral contrast opacification of entire large bowel. Descending colon and sigmoid diverticulosis. Small left renal cyst and additional subcentimeter low-attenuation left renal
lesion most likely a cyst. Small urinary bladder diverticulum.
Procedure findings :�
Colonoscopy (04/09/2025)
-Non-bleeding internal hemorrhoids were found during retroflexion. The hemorrhoids were medium-sized.
-Multiple diverticula were found in the sigmoid colon and descending colon.
-The exam was otherwise without abnormality.
-A 5 mm polyp was found in the sigmoid colon. The polyp was sessile.
-A 4 mm polyp was found in the cecum. The polyp was sessile.
-A 4 mm polyp was found in the descending colon. The polyp was sessile.
-A tattoo was seen in the sigmoid colon. The tattoo site appeared normal.
-Old blood seen suspected resolving diverticular bleeding.
Follow-up :
Follow-up with family doctor within 1 to 2 weeks of discharge from the hospital
Follow-up in office with gastroenterology, plan for colonoscopy and polypectomy in 6 months
Repeat CBC 5 to 7 days after discharge
Discharge Plan
-
Patient Disposition: Home (Routine Discharge)
Discharge Diagnosis/Procedures: Diverticular bleed
Acute blood loss anemia
Lower GI bleeding
Colon polyps
Status post colonoscopy
Condition: Good
Diet: Low Residue
Activity: As tolerated
Driving Restrictions: As prior to admission
Bathing Restrictions: None
Blood Work: CBC in 5 days to recheck blood counts
Others Tests: Colonoscopy with polypectomy to be scheduled by pick up driver
Transthoracic Echocardiogram to assess cardiac murmur (likely Aortic stenosis)
Activity Restrictions/Additional Instructions:
Follow-up with your family doctor within 1 to 2 weeks of discharge from the hospital
Contact pick up driver office to schedule appointment for colonoscopy and colon polyp removal
Instructions: Low-fiber diet
Referrals:
Yesi Ladd MD [Active, Gastroenterology] - in one to two weeks
Maximilian Carmona DO [Family Provider, Family Practice]
Additional Discharge Medication Instructions: Stop taking amlodipine and to use see your family doctor in the office
Prescriptions:
Continued
omeprazole 20 MG capsule,delayed release(DR/EC)
20 mg PO DAILY
cyclobenzaprine 10 mg tablet
5 mg PO TIDPRN PRN (Reason: muscle spasm) Qty: 9 0RF
Held
amlodipine 2.5 MG tablet
5 mg PO DAILY
Hold Instructions: Until you see family doctor in office
Discharge Orders:
Discharge Patient (As Directed); Ordered 04/10/25
Ordered By: Bart Beltran
Discharge Date and Time
Print Language: ROMANIAN
== END 2025-04-10 13:57 | disposition home or self-care (01) | DRG 378 ==
LOC: 2 NORTH 02:01
PROVIDERS: Emergency Medicine; Nurse Practitioner Adult Health; Nurse Practitioner Family; ADMITTING PHYSICIAN Internal Medicine; ATTENDING PHYSICIAN Internal Medicine; CONSULT PHYSICIAN Internal Medicine Gastroenterology; EMERGENCY PHYSICIAN Student in an Organized Health Care Education/Training Program; FAMILY PHYSICIAN Family Medicine
PROC: 0DJD8ZZ Inspection of Lower Intestinal Tract, Via Natural or Artificial Opening Endoscopic (ICD-10-PCS; 2025-04-09)
DX: K57.31 Diverticulosis of large intestine without perforation or abscess with bleeding (principal); D62 Acute posthemorrhagic anemia; D12.0 Benign neoplasm of cecum; K64.8 Other hemorrhoids; D12.5 Benign neoplasm of sigmoid colon; D12.4 Benign neoplasm of descending colon; I12.9 Hypertensive chronic kidney disease with stage 1 through stage 4 chronic kidney disease, or unspecified chronic kidney disease; N18.30 Chronic kidney disease, stage 3 unspecified; K21.00 Gastro-esophageal reflux disease with esophagitis, without bleeding; N28.1 Cyst of kidney, acquired; N32.3 Diverticulum of bladder; E66.9 Obesity, unspecified; Z68.28 Body mass index [BMI] 28.0-28.9, adult; E87.5 Hyperkalemia; F17.200 Nicotine dependence, unspecified, uncomplicated; Z90.79 Acquired absence of other genital organ(s)
CPT/HCPCS: 74176; 80048; 80053; 85014; 85018; 85025; 85027; 85610; 86850; 86900; 86901; 96365; 99284

== ENCOUNTER 2025-04-14 04:47 | Inpatient (IN) | payer MEDICARE, OTHER, SELFPAY ==
[2025-04-13 22:13] VITALS: BP 121/73
[2025-04-13 23:12] VITALS: BP 138/62
[2025-04-13 23:46] LABS: % Basophils 0.6 % (0-2); % Eosinophils 1.8 % (0-6); % Immature Granulocytes 0.5 % (0-0.5); % Lymphocytes 11.3 % (20.5-51.1); % Monocytes 7.9 % (1.7-9.3); % Neutrophils 77.9 % (42.2-75.2); Absolute Eosinophils 0.1 10^3/uL (0-0.7); Absolute Lymphocytes 0.7 10^3/uL (1.2-3.4); Absolute Monocytes 0.5 10^3/uL (0.1-0.6); Absolute Neutrophils 5.1 10^3/uL (1.4-6.5); Hematocrit 23.7 % (39.0-52.0); Hemoglobin 7.7 g/dL (13.0-18.0); Mean Corp Hgb Conc. 32.5 g/dL (33.0-37.0); Mean Corpuscular Hgb 27.9 pg (27.0-31.0); Mean Corpuscular Volume 85.9 fL (80.0-94.0); Mean Platelet Volume 10.4 fL (7.4-10.4); Nucleated Red Blood Cells % 0 % (-); Platelet Count 149 10^3/uL (130-400); Red Blood Cell Count 2.76 10^6/uL (4.70-6.10); Red Cell Dist. Width 14.7 % (11.5-14.5); White Blood Cell Count 6.6 10^3/uL (4.8-10.8)
[2025-04-14] VITALS (33 sets, daily range): BP systolic 16–160; BP diastolic 53–139
[2025-04-14 00:07] LABS: Lactic Acid 2.1 mmol/L (0.7-2.0)
[2025-04-14 00:09] LABS: ALT (SGPT) 17 U/L (0-50); AST (SGOT) 19 U/L (17-59); Albumin 3.9 g/dl (3.5-5.0); Alkaline Phosphatase 52 U/L (38-126); Blood Urea Nitrogen 28 mg/dl (9-20); Calcium 9.1 mg/dl (8.4-10.2); Carbon Dioxide 25 mmol/L (22-30); Chloride 110 mmol/L (98-107); Glucose 132 mg/dl (70-99); Lipase 98 U/L (23-300); Potassium 4.2 mmol/L (3.5-5.1); Sodium 141 mmol/L (135-145); Total Bilirubin 0.6 mg/dl (0.2-1.3); Total Protein 6.4 g/dl (6.3-8.2); eGFR 31.63
[2025-04-14 00:10] LABS: Troponin I < 0.012 ng/ml
[2025-04-14] MEDS: NSS 1000 IV ×3 (02:29→17:28)
--- NOTE | 2025-04-14 03:56 | ED.GENMED ---
History of Present Illness
General
Chief Complaint: Abdominal Pain
Source: patient
Exam Limitations: none
Time Seen by Provider: 04/14/25 03:10
Nursing documentation reviewed up to this point in time: agreed with
History of Present Illness
History of Present Illness:
69-year-old male with past medical history of hypertension, GERD, diverticulosis who presents emergency department today with concerns of dark stools and a presyncopal episode. Patient reports that he is having some transient left-sided crampy
abdominal pain today when he went to go use the bathroom and noticed he had an episode of very dark stools that was almost black. He denies any bright rectal bleeding today. Patient reports that he also felt dizzy and lightheaded and felt that he
almost had an episode where he lost consciousness. He was afraid to get up from his chair due to his symptoms and called his son. Upon arrival to the ER, his symptoms persist and his son reports that he was less interactive than he usually is.
Patient was given IV fluids prior to my assessment and on my evaluation, he is awake and alert. Of note, patient reports that he was discharged from our hospital on April 10 for diverticular bleed. He had a colonoscopy which did not show any active
bleeding but did show older blood he is told that he has a diverticular bleed. He denies any daily NSAID use. He denies any use of anticoagulants or antiplatelet agents. He has not had any bright red rectal bleeding since April 11. He denies chest
pain, shortness of breath, fevers or chills, nausea or vomiting.
Past History
Past History
ED Past Medical History: GERD, Renal failure (Chronic kidney disease stage III) and Other (Prostatitis)
ED Past Surgical History: Orthopedic (Right rotator cuff repair)
Social History
Tobacco: Smoker
Alcohol: Occasional
Personal:
Living: with family
Employment: Employed
Family History
Family History: Cancer
Review of Systems
Review of Systems
All Other Systems: ROS reviewed and negative except as documented in HPI and ROS
Phy Exam
Physical Exam
Physical Exam:
General: Patient is well appearing and in no acute distress; non-toxic
Skin: Warm and dry, no rashes or lesions
Head: Normocephalic, atraumatic
Eyes: Sclera non-icteric. EOMs intact.
Cardiac: Regular rate and rhythm, no murmurs
Peripheral Vascular: No lower extremity swelling or edema
Pulm: Normal respiratory effort, no wheezes, rales, rhonchi
Abdomen: No abdominal tenderness to palpation, normoactive bowel sounds
Genitourinary: Dark, heme positive stool within rectal vault, no hemorrhoids visualized, no rectal lesions
Neuro: CN II-XII intact, no focal neurologic deficits.
Psychiatric: Appropriate mood and affect.
Course
Orders/Labs/Results
Orders:
Orders
04/13/25 22:19
ECG [Electrocardiogram (*1)] Urgent
Reason for Study: Syncope
04/13/25 22:20
EKG- Treatment ONCE
04/13/25 23:25
Type And Crossmatch [Type+Screen] Urgent
Complete Blood Count/With Diff Urgent
Comprehensive Metabolic Panel Urgent
Lactic Acid Urgent
Lipase Urgent
Troponin I Urgent
04/14/25 02:28
0.9% Sodium Chloride 1000 ml [Nss] 1,000 ml IV BOLUS
04/14/25 02:52
STOOL [C difficile Antigen & Toxins] Urgent
ULISES Source: Feces/Stool
Specimen Description:
Stool Culture Urgent
ULISES Source: Feces/Stool
Specimen Description:
04/14/25 03:42
Pantoprazole [Protonix IV] 40 mg IV NOW STA
04/14/25 03:58
Blood Bank Products [* Blood Bank Products] Urgent
Blood Bank Products: *Packed RBC Leuko(PRBC's)
Quantity: 1
Transfuse Today: Yes
Reason: Bleeding
04/14/25 04:32
Admit/Transfer Patient As Directed
Co-Sign Provider:
Level of Care: Inpatient admission
Assign to:: Telemetry
Physician / Group: Juanpablo
Diagnosis: GI Bleed
Reason for Telemetry: Arrhythmia
Date to Stop Telemetry: 04/17/25
Time to Stop Telemetry: 11:00
Reason for Hospitalization: GI Bleed
Expected length of stay greater than two midnights?: Yes
ELOS- Estimated Length of Stay in days: 3
I certify the patient meets the requirements for IP care: Yes
PRN Pain Medication Management As Directed
May give lesser potent ordered pain med per pt: Yes
preference::
Protocol:: Medication orders for pain may be administered in a
manner that supports deferring to patient preference
when the pt is:
- Requesting an ordered lesser potent pain medication.
Least to most potent pain medications are defined
as: acetaminophen < NSAID < tramadol < opioids
(morphine, oxycodone, hydromorphone).
- Requesting a lesser dose of the same medication IF
ORDERED.
- Requesting a less intrusive route of administration
if both routes are prescribed by the provider (PO <
IV).
04/14/25 04:33
Code Status As Directed
Resuscitation Status: Full Code
04/14/25 05:08
HH [H&H] Q8H
0.9% Sodium Chloride 1000 ml [Nss] 1,000 ml IV 150 mls/hr
Acetaminophen [Tylenol] 650 mg PO Q4HPRN PRN
Ondansetron Injectable [Zofran] 4 mg IV Q6HPRN PRN
04/14/25 05:08
Consult Notification Routine
Specialty to Notify: Gastroenterology
GASTROINTESTINAL CONSULT Routine
Consulting Provider: Otilia Lopez
Was physician already notified: No
Reason for consult: GI Bleed, Anemia
Activity As Directed
Activity Level: Bedrest
I/O [Intake/ Output] As Directed
Frequency: Per unit guidelines
Pneumatic Compression Sleeves As Directed
Type: Knee high
Vital Signs As Directed
Frequency: Per unit guidelines
Oxygen Therapy [O2 Therapy] [RESP] Routine
Titrate/Wean O2 to maintain O2 sat greater than (%): 94
DX Deep Vein Thrombosis Video Routine
04/14/25 Breakfast
NPO
Allow oral meds: Yes
Allow clear liquids: Sips of Clears
Basic Metabolic Panel IN AM
04/14/25 08:00
Pantoprazole [Protonix IV] 40 mg IV BID
04/14/25 13:08
HH [H&H] Q8H
04/14/25 21:08
HH [H&H] Q8H
04/17/25 11:00
DC Protocol for Telemetry ONCE
Abnormal Lab Results
04/13/25
23:25
RBC 2.76 L 10^6/uL
(4.70-6.10)
Hgb 7.7 L g/dL
(13.0-18.0)
Hct 23.7 L %
(39.0-52.0)
MCHC 32.5 L g/dL
(33.0-37.0)
RDW 14.7 H %
(11.5-14.5)
Absolute Lymphs (auto) 0.7 L 10^3/uL
(1.2-3.4)
Neutrophils % 77.9 H %
(42.2-75.2)
Lymphocytes % 11.3 L %
(20.5-51.1)
Chloride 110 H mmol/L
(98-107)
BUN 28 H mg/dl
(9-20)
Creatinine 2.2 H mg/dL
(0.7-1.3)
Glucose 132 H mg/dl
(70-99)
Lactic Acid 2.1 H mmol/L
(0.7-2.0)
Crossmatch IS Only See Detail
04/13/25 23:25
04/13/25 23:25
Vital Signs
Initial and Last Documented VS:
Initial Vital Signs
Temp Pulse Resp BP Pulse Ox
98.0 F 62 20 121/73 99
04/13/25 22:13 04/13/25 22:13 04/13/25 22:13 04/13/25 22:13 04/13/25 22:13
Last Documented Vital Signs
Temp Pulse Resp BP Pulse Ox
98.5 F 68 18 136/82 100
04/14/25 06:10 04/14/25 06:00 04/14/25 06:00 04/14/25 06:00 04/14/25 06:00
MDM/Problems Addressed
Differential Diagnosis Includes:
Differentials include gastritis, diverticulosis, diverticulitis, bleeding polyp, colitis
MDM/Problems Addressed:
69-year-old male with past medical history of hypertension, GERD, diverticulosis who presents emergency department today with concerns of dark stools and a presyncopal episode. Patient reports that he is having some transient left-sided crampy
abdominal pain today when he went to go use the bathroom and noticed he had an episode of very dark stools that was almost black. He denies any bright rectal bleeding today. Of note, he was recently discharged for d from [facility] for
diverticular bleed. On physical exam he is well-appearing no acute distress he does have heme positive stool. His hemoglobin is trending down today at 7.7. Considering active evidence of active bleeding, symptomatic anemia, will give 1 unit of
blood and refer for admission for observation and GI consult.
*Critical Care Note
Total Time (30-74mins, 75-104mins- exclusive of procedures): Not Applicable
ED Attending Note
-
Portions of this chart may have been created with voice recognition software.� Occasional wrong word or��sound alike� substitutions may have occurred due to the inherent limitations of voice recognition software.
Discharge Plan
Departure
Patient Disposition: Admit
Date of Disposition: 04/14/25
Time of Disposition: 04:20
Admit to: Telemetry
Presentation/result/management discussed w/ accepting MD/DO: Hospitalist
Patient with high blood pressure during this ER visit?: No
Condition: Fair
Discharge Problem:
GI bleeding, Dizziness
Interventions
Interventions:
*Risk Screen - Suicide Last Done: 04/13/25 23:42
*General Assessment Last Done: 04/13/25 22:13
*Neglect/Abuse Screening Last Done: 04/13/25 23:42
*ED- Fall Risk Assessment Last Done: 04/13/25 23:41
*ED COVID-19 Vaccine History Last Done: 04/14/25 05:09
XM-Wtmoib-Qnzgyfnvdo Assessment Last Done: 04/13/25 23:39
[2025-04-14] MEDS: PROTONIX IV 40 MG IV ×3 (03:58→19:54)
--- NOTE | 2025-04-14 04:34 | HPS.HSE ---
Family Physician
-
Family Physician: Maximilian Carmona
Chief Complaint
-
Lightheaded / Diaphoretic
History of Present Illness
Patient is a 69y M with PMH significant for hypertension, CKD and recent admission for diverticular bleed who presents to ED complaining of lightheadedness and diaphoresis this evening. Patient was admitted to 04/08 - 04/10 secondary to BRBPR.
He underwent colonoscopy on 04/09 which showed diverticular disease with evidence of recent bleeding - but no active bleeding. His Hgb was fairly stable, he did not require transfusion and he was discharged to home.
Patient notes that he had some chicken soup for dinner this evening. A short time later he developed crampy mid-abdominal pain with associated lightheadedness and diaphoresis.
Family was present and became concerned with his appearance. Patient was helped to the bathroom where he states he had a loose, dark, non-bloody BM. He was brought to the ED for further evaluation and treatment.
Patient denies any upper abdominal pain, N/V, heartburn, etc.
He denies any use of NSAIDs, etc.
At the time of my examination, he has no abdominal pain and denies any lightheadedness.
Medical History
Past Medical History
Past Medical History: Reports Other
Additional Past Medical History:
CKD stage III
Prostatitis
GERD
Hypertension
Past Surgical History: Reports Other
Additional Past Surgical History:
Lap repair of inguinal hernia 2020
Right knee arthroscopy
TURP 2022
Surgical History
Surgical History
Social History
Tobacco: Non-smoker
Alcohol: None
Drug: None
Family History
Family History: Not pertinent
Allergies / Home Medications
Allergies reflects when Allergies were last updated in [facility].
Home Medications with original date entered in [facility]
Allergy/Medication List:
Allergies
Allergy/AdvReac Type Severity Reaction Status Date / Time
No Known Allergies Allergy Verified 04/13/25 22:13
Home Medications
amlodipine 2.5 mg tablet 5 mg PO DAILY Blood Pressure 08/05/21
Held on 04/10/25. Instructions: Until you see family doctor in office
omeprazole 20 mg capsule,delayed release 20 mg PO DAILY Gastrointestinal Issue 08/05/21
cyclobenzaprine 10 mg tablet 5 mg (1/2 x 10 mg) PO TIDPRN PRN muscle spasm #9 tabs 05/14/24
Review of Systems
-
History Source: Patient
A 12 point ROS was completed and negative except as noted: Yes
Constitutional: Reports Fatigue; Denies Fever or Chills
Respiratory: Denies Cough or Trouble Breathing
Cardiac: Reports Diaphoresis; Denies Chest Pain or Syncope
Abdomen/GI: Reports Abdominal Pain, Diarrhea and Black Stools; Denies Nausea or Vomiting
: Denies Dysuria or Frequency
Musculoskeletal: Denies Joint Pain or Edema
Neurological: Reports Dizzy; Denies Headache
Psych: Denies Depression or Anxiety
Physical Exam
Vital Signs
Vital Signs
Temp Pulse Resp BP Pulse Ox
98.5 F 64 20 140/79 99
04/14/25 03:57 04/14/25 04:15 04/14/25 04:15 04/14/25 04:00 04/14/25 04:15
Physical Exam
General: Other (69y M in no acute distress.)
HEENT: Moist mucous membranes and PERRLA
Respiratory: Clear; No Wheezes, Rales or Rhonchi
Cardiac: S1/S2, Regular Rhythm and Murmur (III/ BOGDAN)
GI: Other (Softly distended, not tender, pos BS.)
Musculoskeletal: No Clubbing, No Cyanosis and No Edema
Neuro: AO x 3
Laboratory Results
-
04/13/25 23:25
04/13/25 23:25
Laboratory Results
Lactic Acid 2.1 mmol/L (0.7-2.0) H 04/13/25:25
Total Bilirubin 0.6 mg/dl (0.2-1.3) 04/13/25:
AST 19 U/L (17-59) 04/13/25:25
ALT 17 U/L (0-50) 04/13/25:
Alkaline Phosphatase 52 U/L (38-126) 04/13/25:
Troponin I < 0.012 ng/ml 04/13/25:
Lipase 98 U/L (23-300) 04/13/25:
Impression/Plan
-
A/P: Patient is a 69y M with PMH significant for hypertension, CKD and recent GI bleed who presents to ED complaining of lightheadedness and diaphoresis this evening.
GI Bleed
Acute Blood Loss Anemia secondary to the above
- Admit for further evaluation and treatment.
- Hgb now 7.7 (baseline > 12, discharge value of 8.8).
- Stool now described as dark / black whereas it was bright red bleeding during prior visit.
- IV PPI BID for now.
- IVF support.
- PRBCs ordered x 1 in the ED.
- GI evaluation for additional recommendations / possible endoscopic examination.
- Follow H&H.
- Follow for any recurrent bloody stools, melena, etc.
Benign Hypertension
- Continue to hold outpatient amlodipine given bleeding / volume loss.
SAMIA on CKD III
- SCr = 2.2 compared to baseline around 1.7.
- Similar to prior admission / likely pre-renal in origin.
- IVF support / blood products as noted above.
- Follow for improvement in renal function.
DVT Prophylaxis: SCDs
Code Status: Full
--- NOTE | 2025-04-14 07:00 | CON.GI ---
Addendum entered and electronically signed by NKECHI Kim 04/14/25 10:49:
ok to hold stool studies unless recurrent bouts of diarrhea.
Addendum entered and electronically signed by Cecy Estes MD 04/14/25 09:47:
I saw and examined the patient.
The SALES STORE CHECKER's note was reviewed and I agree with the note.
Comment: This is a very pleasant 69-year-old male with past medical history as listed below who recently was admitted to [facility] from 04/08-04/10 with rectal bleeding had undergone a colonoscopy on 04/09 with hemorrhoids noted,diverticulosis in the
sigmoid and descending colon, polyps, tattoo was seen in the sigmoid colon with no residual polyp and old blood was seen and it was thought to be diverticular bleed and was recommended repeat colonoscopy in 6 months for polypectomy. subsequently the
bleeding resolved hemoglobin stabilized and he was discharged home and hemoglobin at the time of DC 04/10 was 8.8. He now presents with abdominal pain and dark stools with dizziness and hemoglobin yesterday was 8.1 and repeat from today 7.7 and
received blood 1 Unit. Blood pressure improved with IV fluids, in the ER rectal with dark heme positive stools. He does have a history of reflux and has been on PPI and no breakthrough symptoms. He denies any use of NSAIDs and has not been on
aspirin or anticoagulation either.
Assessment and plan symptomatic acute blood loss anemia but only a slight drop in hemoglobin from his recent admission Hb on 04/10 was 8.8 now at 7.7 and as described above recent colonoscopy during his recent admission of 04/09 revealed
diverticulosis, hemorrhoids and colon polyps most likely that episode was diverticular bleed and could be having recurrent diverticular bleed or could be less likely an upper GI bleed will schedule him for an endoscopy. He will need repeat
colonoscopy in 6 months for polypectomy with Dr. Ladd. Continue PPI. Hemoglobin posttransfusion pending. if he has further active bleeding and EGD is negative needs bleeding scan since his creatinine is elevated may not be able to do a CTA.
Original Note:
Consultation
-
Date/Time Consultation Requested: 04/14/25 0500
Date/Time Consultation Performed: 04/14/25 0700
Requesting Provider: Beka Geronimo DO
Performing Provider: NKECHI Alvares, Cecy Estes MD
Reason for Consultation: anemia
Medical History
Chief Complaint / HPI
Chief Complaint: bright red blood per rectum
History of Present Illness:
Pt is a 69yo with hx GERD, HTN, CKD, colon polyps with removal of 16 mm TV polyp in 2019, prostatitis , prior TURP, knee/shoulder surgery with onset of rectal bleeding and mild LLQ pain. He was admitted 04/08 to 04/10 with drop in hbg and bleeding
with red blood with clots with concern for diverticular bleed. During admission he completed CT with oral contrast only on admission with Limited evaluation without intravenous contrast and without oral contrast opacification of entire large
bowel.Descending colon and sigmoid diverticulosis.Small left renal cyst and additional subcentimeter low-attenuation left renal lesion most likely a cyst.Small urinary bladder diverticulum. During admission he was also completed colonoscopy
with non bleeding hemorrhoids, diverticulosis, multiple polyps note resected, old tattoo site noted old blood with concern for diverticular bleed. No specimens collected and pt to return 6 months for repeat colonoscopy and removal of polyps. Pt now
returns with diffuse intermittent abdominal pain and dark stools and dizziness. hbg was 8.1 on discharged 8.8 04/10 and noted 7.7 on return 04/13. BUN was up to 45 last admission but 28 on return. Pt with initial mild hypotension with SBP 110's but
improved to SBP 140-150's. Last EGD 2017 acute gastritis, normal duodenum, irreg Z line with neg bx.
In review with patient he states on Sunday and Sunday noted dark blood. He thought it was just only blood but on Sunday developed further bleeding with crampy pain, sweats and shortness of breath. Rectal in ER with dark heme + stool. He has
chronic GERD stable on PPI daily. He otherwise denies dysphagia,nausea, vomiting, diarrhea, or constipation. Denies Anticoagulation or NSAID use.
Past Medical History
Past Medical History: GERD, HTN, Renal Failure (CKD) and Other (prostatitis, colon polyps, diverticular bleed, anemia acute blood loss, murmur )
Past Surgical History: Orthopedic (knee arthroscopy, rotator cuff repair ), Urological (TURP , circumcision ) and Other (hernia repair , )
Social History
Tobacco: Former Smoker
Alcohol: Occasional (1-2 drinks occasionally )
Drug: None
Personal:
Living: With Family
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
Family History
Family History: Other (no family hx colon Ca)
Allergies / Home Medications
Allergy/AdvReac Type Severity Reaction Status Date / Time
No Known Allergies Allergy Verified 04/13/25 22:13
�Medication �Instructions �Recorded
amlodipine 2.5 mg tablet 5 mg PO DAILY Blood Pressure 08/05/21
Held on 04/10/25.
Instructions: Until you see
family doctor in office
omeprazole 20 mg capsule,delayed 20 mg PO DAILY Gastrointestinal 08/05/21
release Issue
cyclobenzaprine 10 mg tablet 5 mg (1/2 x 10 mg) PO TIDPRN PRN 05/14/24
muscle spasm #9 tabs
Review of Systems
-
History Source: Patient
Constitutional: Reports Fatigue and Chills (with sweats )
EENT: Reports No Symptoms
Respiratory: Reports No Symptoms
Cardiac: Reports No Symptoms
Abdomen/GI: Reports Abdominal Pain (diffuse intermittent pain ) and Bloody Stools (red blood last admission now dark blood )
: Reports No Symptoms
Musculoskeletal: Reports No Symptoms
Skin: Reports No Symptoms
Neurological: Reports Dizzy and Weakness
Endocrine: Reports No Symptoms
Hematologic/Lymphatic: Reports Bleeding
Vital Signs
Temp Pulse Resp BP Pulse Ox
98.5 F 68 18 136/82 100
04/14/25 06:10 04/14/25 06:00 04/14/25 06:00 04/14/25 06:00 04/14/25 06:00
Physical Exam
Exam
General: Well Developed, Well Nourished and No Apparent Distress
HEENT: Normocephalic
Respiratory: Clear
Cardiac: Regular Rhythm
GI: Soft, Non Tender and Non Distended
Rectal: Other (ER rectal with dark heme + stool)
Musculoskeletal: No Clubbing and No Cyanosis
Skin: Warm and Dry
Neuro: Awake, Alert and AO x 3
Psych: Calm
Results
WBC 6.6 10^3/uL (4.8-10.8) 04/13/25 23:25
Hgb 7.7 g/dL (13.0-18.0) L 04/13/25:25
Hct 23.7 % (39.0-52.0) L 04/13/25:25
MCV 85.9 fL (80.0-94.0) 04/13/25 23:25
Plt Count 149 10^3/uL (130-400) 04/13/25:25
Absolute Neuts (auto) 5.1 10^3/uL (1.4-6.5) 04/13/25 23:25
Sodium 141 mmol/L (135-145) 04/13/25:25
Potassium 4.2 mmol/L (3.5-5.1) 04/13/25 23:25
Chloride 110 mmol/L (98-107) H 04/13/25 23:25
Carbon Dioxide 25 mmol/L (22-30) 04/13/25 23:25
BUN 28 mg/dl (9-20) H 04/13/25 23:25
Creatinine 2.2 mg/dL (0.7-1.3) H 04/13/25 23:25
Calcium 9.1 mg/dl (8.4-10.2) 04/13/25:25
Total Bilirubin 0.6 mg/dl (0.2-1.3) 04/13/25 23:25
AST 19 U/L (17-59) 04/13/25 23:25
ALT 17 U/L (0-50) 04/13/25 23:25
Alkaline Phosphatase 52 U/L (38-126) 04/13/25 23:25
Lipase 98 U/L (23-300) 04/13/25 23:25
Diagnostic Image Results:
04/07/25 CT with oral contrast only on admission with Limited evaluation without intravenous contrast and without oral contrast opacification of entire large bowel.
Descending colon and sigmoid diverticulosis.Small left renal cyst and additional subcentimeter low-attenuation left renal lesion most likely a cyst.Small urinary bladder diverticulum.
Prior GI Procedures:
EGD: 04/2017 EGD [facility]- - Z-line irregular, 38 cm from the incisors. Biopsied.
- Acute gastritis. Biopsied.
- Normal third portion of the duodenum. Biopsied.
bx chronic esophagitis, neg metaplasia neg dysphagia, neg h pylori
Colonoscopy:
04/09/25-Dr. Ladd - Non-bleeding internal hemorrhoids.
- Diverticulosis in the sigmoid colon and in the
descending colon.
- The examination was otherwise normal.
- One 5 mm polyp in the sigmoid colon.
- One 4 mm polyp in the cecum.
- One 4 mm polyp in the descending colon.
- An old tattoo was seen in the sigmoid colon. The
tattoo site appeared normal.
- Old blood seen suspected resolving diverticular
bleeding.
- No specimens collected.
no biopsy taken and return for repeat colonoscopy in 6 months for polyp removal
08/2020- colonoscopy [facility] good prep to IC valve - One 3 mm polyp in the sigmoid colon, removed with a
cold biopsy forceps. Resected and retrieved.
- A tattoo was seen in the sigmoid colon. The tattoo
site appeared normal.
- Diverticulosis in the sigmoid colon, in the
descending colon and in the transverse colon.
- Melanosis in the colon.
- The examination was otherwise normal.
bx HP polyps
Assessment / Plan
-
Pt is a 69yo with hx GERD, HTN, CKD, colon polyps with removal of 16 mm TV polyp in 2019, prostatitis , prior TURP, knee/shoulder surgery with onset of rectal bleeding and mild LLQ pain. He was admitted 04/08 to 04/10 with drop in hbg and bleeding
with red blood with clots with concern for diverticular bleed. During admission he completed CT with oral contrast only on admission with Limited evaluation without intravenous contrast and without oral contrast opacification of entire large
bowel.Descending colon and sigmoid diverticulosis.Small left renal cyst and additional subcentimeter low-attenuation left renal lesion most likely a cyst.Small urinary bladder diverticulum. During admission he was also completed colonoscopy
with non bleeding hemorrhoids, diverticulosis, multiple polyps note resected, old tattoo site noted old blood with concern for diverticular bleed. No specimens collected and pt to return 6 months for repeat colonoscopy and removal of polyps. Pt now
returns with diffuse intermittent abdominal pain and dark stools and dizziness. hbg was 8.1 on discharged 8.8 04/10 and noted 7.7 on return 04/13. BUN was up to 45 last admission but 28 on return. Pt with initial mild hypotension with SBP 110's but
improved to SBP 140-150's. Last EGD 2016 acute gastritis, normal duodenum, irreg Z line with neg bx.
-symptomatic anemia with further drop in hbg from discharge last week
-mild intermittent abdominal pain
-rectal bleeding- red blood last week now dark stools
-recent admission with concern for diverticular bleed 04/08-04/10
-retained polyps due for repeat colonoscopy 6 months for
-hx colon polyp with removal of 16 mm TV polyp in 2019
-GERD stable on PPI
-diverticulosis
other med problems:
-HTN
-CKD
-renal cyst
-prostatitis
-prior TURP
-knee/shoulder surgery
PLAN:
Etiology of bleeding related to residual blood from diverticular bleeding vs upper bleed(with some rise on BUN last admission, dizziness, mild hypotension) vs SB bleed vs other
plan for EGD today to exclude any component of upper GI bleeding
if EGD neg monitor for recurrent bleeding - if large volume consider CTA if creat allows vs nuclear bleeding scan vs OP capsule
s/p 1 units PRBC's given on admission
cont to trend hbg further transfusion as needed
cont PPI BID
NPO til EGD completed
if persistent abdominal pain consider repeat CT with oral contrast as some limitation of prior CT with contrast only to Small bowel
updated nursing staff
OP follow up for eventual repeat colonoscopy in 6 months with retained polyps
-
-
Thank you for consultation and allowing me to participate in the patient's care. Please call the trade promotion analyst GI physician during the after hours with any questions or concerns.
[2025-04-14] MEDS: NSS (PRESERVATIVE FREE) 10 ML IV ×2 (07:45→19:53)
--- NOTE | 2025-04-14 09:21 | W.PN.UPDATE ---
Update Note
Progress Note Update
Non-billable addendum
Pt admitted 6/3 early AM with concern for upper GI bleed
Noted recent admission 1 week prior [facility] with colonoscopy on 04/09 which showed diverticular disease with evidence of recent bleeding - but no active bleeding
1 unit PRBC ordered
At present, denies any abd pain or any vomiting blood
for EGD today
Assessment:
GI Bleed
Acute Blood Loss, symptomatic Anemia secondary to the above
Recent history of rectal bleeding
- admit Hb 7.7; s/p 1 unit PRBC pending repeat Hb
- IV PPI BID for now.
- IVF support.
- GI consulted; NPO for EGD today
Hx of GERD on PPI
Benign Hypertension
- Continue to hold outpatient amlodipine given bleeding / volume loss.
SAMIA on CKD III
- SCr = 2.2 compared to baseline around 1.7.
- Similar to prior admission / likely pre-renal in origin.
- IVF support / blood products as noted above.
- Follow for improvement in renal function.
DVT ppx: SCDs
Code Status: Full
[2025-04-14 10:01] LABS: Hematocrit 24.4 % (39.0-52.0)
[2025-04-14 10:40] LABS: Blood Urea Nitrogen 22 mg/dl (9-20); Calcium 8.8 mg/dl (8.4-10.2); Carbon Dioxide 23 mmol/L (22-30); Chloride 113 mmol/L (98-107); Glucose 93 mg/dl (70-99); Potassium 4.2 mmol/L (3.5-5.1); Sodium 139 mmol/L (135-145); eGFR 37.71
[2025-04-14 13:42] LABS: Hematocrit 23.4 % (39.0-52.0); Hemoglobin 7.7 g/dL (13.0-18.0)
[2025-04-14] MEDS: NSS IV (14:34)
[2025-04-14 21:34] LABS: Hematocrit 26.3 % (39.0-52.0); Hemoglobin 8.8 g/dL (13.0-18.0)
[2025-04-14] MEDS: MELATONIN 5 MG PO (22:01)
[2025-04-15] MEDS: NSS 1000 IV ×2 (00:43→06:42)
[2025-04-15 03:30] VITALS: BP 124/71
[2025-04-15 06:59] LABS: Hematocrit 24.2 % (39.0-52.0); Hemoglobin 7.9 g/dL (13.0-18.0); Mean Corp Hgb Conc. 32.6 g/dL (33.0-37.0); Mean Corpuscular Hgb 27.5 pg (27.0-31.0); Mean Corpuscular Volume 84.3 fL (80.0-94.0); Mean Platelet Volume 10.1 fL (7.4-10.4); Platelet Count 149 10^3/uL (130-400); Red Blood Cell Count 2.87 10^6/uL (4.70-6.10); Red Cell Dist. Width 14.8 % (11.5-14.5); White Blood Cell Count 4.1 10^3/uL (4.8-10.8)
[2025-04-15 07:15] VITALS: BP 135/79
[2025-04-15 07:25] LABS: Blood Urea Nitrogen 13 mg/dl (9-20); Calcium 8.5 mg/dl (8.4-10.2); Carbon Dioxide 23 mmol/L (22-30); Chloride 115 mmol/L (98-107); Glucose 92 mg/dl (70-99); Potassium 3.9 mmol/L (3.5-5.1); Sodium 143 mmol/L (135-145)
[2025-04-15 09:03] LABS: Iron 33 ug/dl (49-181)
[2025-04-15] MEDS: PROTONIX IV 40 MG IV ×2 (09:06→19:58)
[2025-04-15] MEDS: NSS (PRESERVATIVE FREE) 10 ML IV ×2 (09:06→19:58)
[2025-04-15 09:12] LABS: Percent Saturation 11 % (20-50); Total Iron Binding Capacity 295 ug/dl (261-462)
[2025-04-15 09:48] LABS: Ferritin 7.6 ng/ml (17.9-464.0)
--- NOTE | 2025-04-15 09:57 | W.PN.HOSP.TC ---
Addendum entered and electronically signed by Phillip Ramirez MD 04/15/25 10:11:
EGD 04/15: Normal esophagus. Medium-sized hiatal hernia. A few gastric polyps. Biopsied. A single non-bleeding angioectasia in the stomach. Normal examined duodenum.
Original Note:
Today's Communication/Plan
-
IV Iron
observe for any evidence of bleeding x 24 hours further
Assessment / Plan
Assessment / Plan
Assessment:
GI Bleed
Acute Blood Loss Anemia secondary to the above
- Hgb now 7.9 possibly from dilution from IVF. Did receive 1 unit PRBC this admission.
- Iron deficient on labs; start IV Iron
- IV PPI BID for now.
- diet: Regular
- GI following; plan for eventual OP Capsule study
Benign Hypertension
- Continue to hold outpatient amlodipine given bleeding/volume loss.
SAMIA on CKD III
- SCr = 2.2 on admission in setting of GI bleed concern. Baseline is 1.7 and Cr is 1.7 after PRBCs and IVFs
DVT ppx: SCDs
Code Status: Full
Anticipated Discharge: > 48 hours
Subjective/Interval History
-
Date of Service: April 15, 2025
hb 7.9 this AM but no BM to observe for melena, no raymundo bleeding
Iron deficient on labs, agrees to IV Iron
Objective Data
-
Labs:
Laboratory Results
04/15/25
06:40
WBC 4.1 L
Hgb 7.9 L
Hct 24.2 L
Plt Count 149
Sodium 143
Potassium 3.9
Chloride 115 H
Carbon Dioxide 23
BUN 13
Creatinine 1.7 H
Glucose 92
Calcium 8.5
Vital Signs:
Vital Signs
Temp Pulse Resp BP Pulse Ox
97.4 F 64 18 135/79 96
04/15/25 07:15 04/15/25 07:15 04/15/25 07:15 04/15/25 07:15 04/15/25 07:15
I&O
04/14/25 04/15/25 04/16/25
06:59 06:59 06:59
Intake Total 0 / 0 1000 / 1000 2280 / 2280
Output Total 1425 / 1425
Balance 0 / 0 1000 / 1000 855 / 855
Physical Exam
-
General: No Apparent Distress
HEENT: Normocephalic and Atraumatic
Respiratory: Negative Wheezes
Cardiac: Regular Rhythm and S1/S2
GI: Soft and Nontender
Genito-urinary: No Costovertebral Tender
Neuro: AO x 3
Hematologic / Lymphatic: No Lymphadenopathy
Psych: Calm
Data Reviewed
-
Total Time Spent with Patient (in minutes): 42
Labs: Labs Reviewed by me
--- NOTE | 2025-04-15 10:20 | CM ---
Initial assessment completed. Recent admission (04/08-04/10). Patient is a 69y M with PMH significant for hypertension, CKD and recent admission for diverticular bleed who presents to ED complaining of lightheadedness and diaphoresis.
Patient resides w/ spouse in [facility], no steps to enter. Patient is independent in all areas, no DME. No SNF/HC hx reported.
Address, points of contact and insurance verified
PCP: Maximilian Carmona
Pharmacy: [facility]
Per hospitalist, poss d/c this evening or tomorrow
Plan: Home, no needs
[2025-04-15 10:42] LABS: Folate 9.9 ng/ml (2.76-20); Vitamin B12 469 pg/ml (239-931)
[2025-04-15 11:20] VITALS: BP 122/73
[2025-04-15] MEDS: FERRLECIT 110 MG IV (13:40)
[2025-04-15 14:16] LABS: Hematocrit 26.9 % (39.0-52.0); Hemoglobin 8.6 g/dL (13.0-18.0)
[2025-04-15 15:15] VITALS: BP 116/71
--- NOTE | 2025-04-15 15:27 | W.PN.GI.CBS2 ---
Today's Communication / Plan
-
monitor HB
IV iron
Assessment / Plan
-
Pt is a 69yo with hx GERD, HTN, CKD, colon polyps with removal of 16 mm TV polyp in 2019, prostatitis , prior TURP, knee/shoulder surgery with onset of rectal bleeding and mild LLQ pain. He was admitted 04/08 to 04/10 with drop in hbg and bleeding
with red blood with clots with concern for diverticular bleed. During admission he completed CT with oral contrast only on admission with Limited evaluation without intravenous contrast and without oral contrast opacification of entire large
bowel.Descending colon and sigmoid diverticulosis.Small left renal cyst and additional subcentimeter low-attenuation left renal lesion most likely a cyst.Small urinary bladder diverticulum. During admission he was also completed colonoscopy
with non bleeding hemorrhoids, diverticulosis, multiple polyps note resected, old tattoo site noted old blood with concern for diverticular bleed. No specimens collected and pt to return 6 months for repeat colonoscopy and removal of polyps. Pt now
returns with diffuse intermittent abdominal pain and dark stools and dizziness. hbg was 8.1 on discharged 8.8 04/10 and noted 7.7 on return 04/13. BUN was up to 45 last admission but 28 on return. Pt with initial mild hypotension with SBP 110's but
improved to SBP 140-150's. Last EGD 2016 acute gastritis, normal duodenum, irreg Z line with neg bx.
-symptomatic anemia with further drop in hbg from discharge last week
-mild intermittent abdominal pain
-rectal bleeding- red blood last week now dark stools
-recent admission with concern for diverticular bleed 04/08-04/10
-retained polyps due for repeat colonoscopy 6 months for
-hx colon polyp with removal of 16 mm TV polyp in 2019
-GERD stable on PPI
-diverticulosis
other med problems:
-HTN
-CKD
-renal cyst
-prostatitis
-prior TURP
-knee/shoulder surgery
PLAN:
Anemia is likely multifactorial from acute blood loss anemia from recent diverticular bleed and also CHETAN likely chronic blood loss from probable small bowel angioectasias
EGD 04/14/2025 with no active bleeding, was noted to have medium hiatal hernia and a small nonbleeding gastric angiectasia and gastric polyps
Hemoglobin improved and is also getting iron infusion. he did receive 1 unit this admission of packed red blood cells 04/14
Will schedule a capsule endoscopy as outpatient
Agree with observing for another 24 hours and if no further bleeding possible DC tomorrow
If he does have further bleeding tonight would get a bleeding scan since creatinine elevated may not be able to have a CTA
Continue PPI daily
Repeat colonoscopy in 6 months for polypectomy
Subjective
Subjective
Date of Service: April 15, 2025
Has not had any further bowel movements or melena. Hemoglobin slightly dropped today but a repeat is stable at 8.6. He also has been started on IV iron. He received 1 unit of packed red blood cells 04/14. Iron studies are consistent with iron
deficiency anemia
Objective
Data Reviewed
Laboratory Data:
Laboratory Results
04/15/25 14:09
Laboratory Tests
04/15/25
06:40
Iron 33 L
TIBC 295
% Saturation 11 L
Ferritin 7.6 L
Vitamin B12 469
Folate 9.9
04/15/25 06:40
Laboratory Results
Total Bilirubin 0.6 mg/dl (0.2-1.3) 04/13/25 23:25
AST 19 U/L (17-59) 04/13/25 23:25
ALT 17 U/L (0-50) 04/13/25 23:25
Alkaline Phosphatase 52 U/L (38-126) 04/13/25 23:25
Lipase 98 U/L (23-300) 04/13/25 23:25
Vital Signs and I&O:
Vital Signs
Temp Pulse Resp BP Pulse Ox
97.8 F 64 16 122/73 99
04/15/25 11:20 04/15/25 11:20 04/15/25 11:20 04/15/25 11:20 04/15/25 11:20
I&O
04/14/25 04/15/25 04/16/25
06:59 06:59 06:59
Intake Total 0 / 0 1000 / 1000 2280 / 2280
Output Total 1425 / 1425
Balance 0 / 0 1000 / 1000 855 / 855
Physical Exam
Physical Exam
Cardiology: Normal Sinus Rhythm
Pulmonary: Clear
GI: Soft, Non Distended, Non Tender and Normal Bowel Sounds
--- NOTE | 2025-04-15 15:30 | CHAP ---
Msgr. Ezequiel Cheney of [facility] gave a [place] to Barry.
[2025-04-15 19:00] VITALS: BP 119/68
[2025-04-15 23:00] VITALS: BP 123/76
[2025-04-16 03:00] VITALS: BP 125/70
--- NOTE | 2025-04-16 07:28 | W.PN.UPDATE ---
Update Note
Progress Note Update
pt schedule follow up with Arielle Quesada 07/06 11:30 AM -- I sent message to office to arrange OP capsule
[2025-04-16 07:36] LABS: Hematocrit 23.5 % (39.0-52.0); Hemoglobin 7.8 g/dL (13.0-18.0); Mean Corp Hgb Conc. 33.2 g/dL (33.0-37.0); Mean Corpuscular Hgb 28.3 pg (27.0-31.0); Mean Corpuscular Volume 85.1 fL (80.0-94.0); Mean Platelet Volume 10.4 fL (7.4-10.4); Platelet Count 155 10^3/uL (130-400); Red Blood Cell Count 2.76 10^6/uL (4.70-6.10); Red Cell Dist. Width 14.8 % (11.5-14.5); White Blood Cell Count 4.7 10^3/uL (4.8-10.8)
[2025-04-16 07:45] VITALS: BP 129/78
[2025-04-16 08:05] VITALS: BP 129/78
[2025-04-16 08:13] LABS: Blood Urea Nitrogen 18 mg/dl (9-20); Calcium 8.7 mg/dl (8.4-10.2); Carbon Dioxide 27 mmol/L (22-30); Chloride 110 mmol/L (98-107); Glucose 133 mg/dl (70-99); Potassium 4.2 mmol/L (3.5-5.1); Sodium 141 mmol/L (135-145); eGFR 37.71
[2025-04-16] MEDS: NSS (PRESERVATIVE FREE) 10 ML IV (09:00)
[2025-04-16] MEDS: PROTONIX IV 40 MG IV (09:00)
[2025-04-16 11:00] VITALS: BP 134/79
--- NOTE | 2025-04-16 12:42 | W.PN.HOSP.TC ---
Today's Communication/Plan
-
dc to home later today after IV Iron
Assessment / Plan
Assessment / Plan
Assessment:
GI Bleed
Acute Blood Loss Anemia secondary to the above
- Hgb now 7.8 possibly from dilution from IVF. Did receive 1 unit PRBC this admission.
- Iron deficient on labs; IV Iron x 2 days in hospital
- continue PPI daily
- diet: Regular
- GI following; plan for eventual OP Capsule study
- OP Hematology referral for IV iron infusions
Benign Hypertension
- resume amlodipine at discharge
SAMIA on CKD III
- SCr = 2.2 on admission in setting of GI bleed concern. Baseline is 1.7 and Cr is 1.7 after PRBCs and IVFs
DVT ppx: SCDs
Code Status: Full
More than 30 minutes spent in discharge including
Final examination of the patient
Summarizing hospital stay
Instructions for continuing care to all relevant caregivers
Preparation of discharge records, prescriptions, and referral forms
Total time spent (in minutes):41
Anticipated Discharge: Today
Subjective/Interval History
-
Date of Service: April 16, 2025
resting comfortably, no complaints
Objective Data
-
Labs:
Laboratory Results
04/16/25
06:29
WBC 4.7 L
Hgb 7.8 L
Hct 23.5 L
Plt Count 155
Sodium 141
Potassium 4.2
Chloride 110 H
Carbon Dioxide 27
BUN 18
Creatinine 1.9 H
Glucose 133 H
Calcium 8.7
Vital Signs:
Vital Signs
Temp Pulse Resp BP Pulse Ox
98.3 F 72 12 134/79 95
04/16/25 11:00 04/16/25 11:00 04/16/25 11:00 04/16/25 11:00 04/16/25 11:00
I&O
04/15/25 04/16/25 04/17/25
06:59 06:59 06:59
Intake Total 1000 / 1000 2520 / 2520
Output Total 2325 / 2325
Balance 1000 / 1000 195 / 195
Physical Exam
-
General: No Apparent Distress
HEENT: Normocephalic and Atraumatic
Respiratory: Negative Wheezes
Cardiac: Regular Rhythm and S1/S2
GI: Soft and Nontender
Genito-urinary: No Costovertebral Tender
Musculoskeletal: No Edema
Neuro: AO x 3
Psych: Calm
Data Reviewed
-
Total Time Spent with Patient (in minutes): 45
Labs: Labs Reviewed by me
--- NOTE | 2025-04-16 12:48 | W.DS.TRANS ---
DC Summary - Probation Supervisor
-
Discharge Instructions:
Discharge Diagnosis/Procedures GI bleed, with associated low iron (iron
deficiency anemia)
Diet Regular
Activity As tolerated
Blood Work repeat CBC in 1 week
Instructions:
Stand-Alone Forms:
Changes to Home Medications: No
Discharge Medications:
DC Medications w/original date entered in [facility]
omeprazole 20 mg capsule,delayed release 20 mg PO DAILY Gastrointestinal Issue 08/05/21
amlodipine 5 mg tablet (Norvasc) 5 mg PO DAILY Blood Pressure 04/14/25
ferrous sulfate 325 mg (65 mg iron) tablet 325 mg PO DAILY #100 tabs 04/16/25
Home Medication Changes
Pending Results: No
Total time spent discharging patient (in min): 41
[2025-04-16] MEDS: FERRLECIT 110 MG IV (13:09)
--- NOTE | 2025-04-16 13:18 | CM ---
Chart reviewed. Patient stable for d/c today
IMM verbally reviewed, copy provided, copy on chart
No CM needs at this time
Plan: Home, no needs
== END 2025-04-16 14:15 | disposition home or self-care (01) | DRG 378 ==
LOC: 4 EAST ACU 04:47
PROVIDERS: Emergency Medicine; ADMITTING PHYSICIAN Hospitalist; ATTENDING PHYSICIAN Internal Medicine; EMERGENCY PHYSICIAN Emergency Medicine; FAMILY PHYSICIAN Family Medicine; OTHER PHYSICIAN Internal Medicine Gastroenterology
PROC: 30233N1 Transfusion of Nonautologous Red Blood Cells into Peripheral Vein, Percutaneous Approach (ICD-10-PCS; 2025-04-14)
PROC: 0DB68ZX Excision of Stomach, Via Natural or Artificial Opening Endoscopic, Diagnostic (ICD-10-PCS; 2025-04-14)
DX: K31.811 Angiodysplasia of stomach and duodenum with bleeding (principal); D62 Acute posthemorrhagic anemia; N17.9 Acute kidney failure, unspecified; K44.9 Diaphragmatic hernia without obstruction or gangrene; K31.7 Polyp of stomach and duodenum; N18.30 Chronic kidney disease, stage 3 unspecified; I12.9 Hypertensive chronic kidney disease with stage 1 through stage 4 chronic kidney disease, or unspecified chronic kidney disease; D50.9 Iron deficiency anemia, unspecified; F17.200 Nicotine dependence, unspecified, uncomplicated; K21.00 Gastro-esophageal reflux disease with esophagitis, without bleeding; Z86.0100 Personal history of colon polyps, unspecified; N28.1 Cyst of kidney, acquired; Z79.899 Other long term (current) drug therapy; Z90.79 Acquired absence of other genital organ(s)
CPT/HCPCS: 88305; 36415; 80048; 80053; 82607; 82728; 82746; 83540; 83550; 83605; 83690; 84484; 85014; 85018; 85025; 85027; 86850; 86900; 86901; 86920; 93005; J2916; P9016

== ENCOUNTER → 2025-04-27 15:01 | Outpatient (REF) | payer MEDICARE, OTHER, SELFPAY ==
[2025-04-27 16:04] LABS: % Eosinophils 5.2 % (0-6); % Immature Granulocytes 0.4 % (0-0.5); % Lymphocytes 25.1 % (20.5-51.1); % Monocytes 12.6 % (1.7-9.3); % Neutrophils 55.7 % (42.2-75.2); Absolute Basophils 0.1 10^3/uL (0-0.2); Absolute Eosinophils 0.3 10^3/uL (0-0.7); Absolute Lymphocytes 1.2 10^3/uL (1.2-3.4); Absolute Monocytes 0.6 10^3/uL (0.1-0.6); Absolute Neutrophils 2.7 10^3/uL (1.4-6.5); Hematocrit 31.8 % (39.0-52.0); Hemoglobin 10.1 g/dL (13.0-18.0); Mean Corp Hgb Conc. 31.8 g/dL (33.0-37.0); Mean Corpuscular Hgb 27.5 pg (27.0-31.0); Mean Corpuscular Volume 86.6 fL (80.0-94.0); Mean Platelet Volume 9.9 fL (7.4-10.4); Nucleated Red Blood Cells % 0 % (-); Platelet Count 184 10^3/uL (130-400); Red Blood Cell Count 3.67 10^6/uL (4.70-6.10); Red Cell Dist. Width 14.6 % (11.5-14.5); White Blood Cell Count 4.8 10^3/uL (4.8-10.8)
== END ==
LOC: REG 15:01
PROVIDERS: ATTENDING PHYSICIAN Internal Medicine; FAMILY PHYSICIAN Family Medicine
DX: D64.9 Anemia, unspecified (principal)
CPT/HCPCS: 36415; 85025

== ENCOUNTER → 2025-05-05 17:15 | Outpatient (REF) | payer MEDICARE, OTHER, SELFPAY | LOC: RCS 17:15 | PROVIDERS: ATTENDING PHYSICIAN Internal Medicine; FAMILY PHYSICIAN Family Medicine | DX: R01.1 Cardiac murmur, unspecified (principal) | CPT/HCPCS: 93306 ==

== ENCOUNTER → 2025-07-28 13:03 | Outpatient (REF) | payer MEDICARE, OTHER, SELFPAY ==
[2025-07-28 13:44] LABS: Hematocrit 37.6 % (39.0-52.0); Hemoglobin 11.9 g/dL (13.0-18.0); Mean Corp Hgb Conc. 31.6 g/dL (33.0-37.0); Mean Corpuscular Volume 77.7 fL (80.0-94.0); Platelet Count 159 10^3/uL (130-400); Red Cell Dist. Width 17.0 % (11.5-14.5)
[2025-07-28 14:01] LABS: Iron 50 ug/dl (49-181)
[2025-07-28 14:11] LABS: Total Iron Binding Capacity 363 ug/dl (261-462)
[2025-07-28 14:39] LABS: Ferritin 7.1 ng/ml (17.9-464.0)
[2025-07-28 15:10] LABS: Folate 9.9 ng/ml (2.76-20); Vitamin B12 348 pg/ml (239-931)
== END ==
LOC: REG 13:03
PROVIDERS: ATTENDING PHYSICIAN Internal Medicine Gastroenterology
DX: D50.0 Iron deficiency anemia secondary to blood loss (chronic) (principal); N18.30 Chronic kidney disease, stage 3 unspecified; N17.9 Acute kidney failure, unspecified
CPT/HCPCS: 36415; 82607; 82728; 82746; 83540; 83550; 85027

== ENCOUNTER 2025-09-14 06:19 | Day surgery (SDC) | payer MEDICARE, OTHER, SELFPAY | END 2025-09-14 11:17 | disposition home or self-care (01) | LOC: GI 06:19 | PROVIDERS: ATTENDING PHYSICIAN Internal Medicine Gastroenterology | DX: Z12.11 Encounter for screening for malignant neoplasm of colon (principal); K57.30 Diverticulosis of large intestine without perforation or abscess without bleeding; K64.8 Other hemorrhoids; D12.4 Benign neoplasm of descending colon; D12.2 Benign neoplasm of ascending colon; K63.5 Polyp of colon; Z86.0100 Personal history of colon polyps, unspecified | CPT/HCPCS: 45385; 45381; 45380; 88305 ==